=== PATIENT | female | born 1930 | race Caucasian/White ===

== ENCOUNTER 2019-03-05 14:27 | Inpatient (IN) | payer MEDICARE, OTHER ==
[~2019-03-05 14:27] MED LIST: BAYER CHEWABLE81 MG; BAYER CHEWABLE81 MG PO; COREG6.25 MG PO; COUMADIN3 MG PO; EFFIENT10 MG PO; FLUTICASONE PRO16 GM NS; HUMALOG 30100 UNITS/ SC; IMDUR30 MG PO; IMDUR60 MG PO; KADIAN50 MG TD; KLONOPIN0.5 MG PO; LASIX40 MG PO; LASIX80 MG PO; LEVEMIR100 U/M1 SQ; LORCET 10/650 T1 TAB PO; MESTINON60 MG PO; NEURONTIN 300300 MG PO; NITROSTAT0.3 MG SL; NOVOLOG MI100 UNIT/1 SQ; PLAVIX75 MG PO; PROCARDIA XL60 MG PO; PROTONIX40 MG PO
[2019-03-05 14:56] VITALS: BP 110/74
[2019-03-05] MEDS ORDERED: HYDROCODON-ACE1 EA10 (15:15)
[2019-03-05] MEDS ORDERED: NORVASC10 MG (15:15)
[2019-03-05] MEDS ORDERED: COUMADIN4 MG PO (15:16)
[2019-03-05 15:33] LABS: BASOPHILS 0.5 % (0-2); EOSINOPHILS 2.4 % (0-7); HEMATOCRIT 39.6 % (36.0-48.0); HEMOGLOBIN 12.7 g/dL (12-16); IMMATURE GRANULOCYTES 0.2 % (0-5); LYMPHOCYTES 34.6 % (15-50); MCH 28.3 pg (26.0-34.0); MCHC 32.1 g/dL (31.0-37.0); MCV 88.4 fL (80.0-100.0); MEAN PLATELET VOLUME 11.1 fL (7.4-10.4); MONOCYTES 10.4 % (2-11); NEUTROPHILS 51.9 % (40-80); RBC 4.48 10x6/uL (4.00-5.40); RDW 17.5 % (11.5-14.5); WBC 6.2 10x3/uL (4.8-10.8)
[2019-03-05 15:38] LABS: PLATELET COUNT 182 10x3/uL (130-400)
[2019-03-05 15:43] LABS: APTT 33.2 SECONDS (22.8-39.4); INR 1.77 (0.85-1.17)
[2019-03-05 15:53] LABS: ALBUMIN 3.5 g/dL (3.4-5.0); ALKALINE PHOSPHATASE 44 U/L (46-116); ALT (SGPT) 21 U/L (10-68); BILIRUBIN - TOTAL 0.21 mg/dL (0.2-1.3); CALC OSMOLALITY 282 mosm/kg (275-300); CALCIUM 8.5 mg/dL (8.5-10.1); CHLORIDE - SERUM 103 mmol/L (98-107); CREATININE - SERUM 1.7 mg/dL (0.6-1.3); GLUCOSE 101 mg/dL (74-106); POTASSIUM - SERUM 4.1 mmol/L (3.5-5.1); PROTEIN - SERUM 7.7 g/dL (6.4-8.2); SODIUM 140 mmol/L (136-145); UREA NITROGEN 23 mg/dL (7-18); eGFR NON AFRICAN AMERICAN 30 mL/min (90-120)
[2019-03-05 16:05] LABS: CKMB 0.4 U/L (0.0-3.6); CREATINE KINASE 54 UL (21-215); MAGNESIUM - SERUM 2.4 mg/dL (1.8-2.4); TROPONIN-I < 0.017 ng/mL (0.000-0.060)
--- NOTE | 2019-03-05 16:45 | NUR ---
PT ASSISTED WITH BSC.
[2019-03-05 17:39] LABS: CKMB 0.2 U/L (0.0-3.6); CREATINE KINASE 59 UL (21-215)
[2019-03-05 17:41] LABS: TROPONIN-I < 0.017 ng/mL (0.000-0.060)
[2019-03-05] MEDS ORDERED: NORVASC5 MG PO (18:03)
[2019-03-05] MEDS ORDERED: NEURONTIN800 MG PO (18:04)
[2019-03-05] MEDS ORDERED: NEURONTIN800 MG (18:04)
--- NOTE | 2019-03-05 19:18 | NUR ---
RECIEVED TO ROOM 2123 FORM ER VIA STRETCHER. PT A&O. RESPERATIONS EVEN ON O2 AT 2 LITERS VIA NC. IV TO RIGHT HAND WITH LEVAQUIN INFUSING. IV SITE CLEAN AND DRY. PLACED ON TELEMETRY, 93 SR. HISTORY AND MED REC OBTAINED AND CHARTED IN [facility]. SANDWHICH TRAY AND APPLE JUICE GIVEN. PT DENIES PAIN OR OTHER NEEDS AT THIS TIME, BED LOW, CL IN REACH.
[2019-03-05] MEDS ORDERED: HYDROCODON-ACE1 EA10 PO (19:20)
[2019-03-05 21:21] VITALS: BP 102/62
[2019-03-05 22:37] VITALS: BP 102/62; BMI 41.1
[2019-03-05 23:46] LABS: CKMB 0.6 U/L (0.0-3.6); CREATINE KINASE 72 UL (21-215); TROPONIN-I < 0.017 ng/mL (0.000-0.060)
[2019-03-06] VITALS (7 sets, daily range): BP systolic 108–162; BP diastolic 62–75; BMI 35.6
--- NOTE | 2019-03-06 02:39 | NUR ---
NORCO 1 TAB GIVEN FOR C/O PAIN TO LEFT LEG, RATES PAIN AT AN 8 ON PAIN SCALE.
[2019-03-06 04:42] LABS: BASOPHILS 0.3 % (0-2); EOSINOPHILS 1.7 % (0-7); HEMATOCRIT 37.3 % (36.0-48.0); HEMOGLOBIN 11.7 g/dL (12-16); IMMATURE GRANULOCYTES 0.2 % (0-5); LYMPHOCYTES 29.5 % (15-50); MCH 27.7 pg (26.0-34.0); MCHC 31.4 g/dL (31.0-37.0); MCV 88.4 fL (80.0-100.0); MEAN PLATELET VOLUME 11.1 fL (7.4-10.4); MONOCYTES 9.2 % (2-11); NEUTROPHILS 59.1 % (40-80); PLATELET COUNT 177 10x3/uL (130-400); RBC 4.22 10x6/uL (4.00-5.40); RDW 17.4 % (11.5-14.5); WBC 5.7 10x3/uL (4.8-10.8)
[2019-03-06 05:17] LABS: ALKALINE PHOSPHATASE 43 U/L (46-116); ALT (SGPT) 17 U/L (10-68); BILIRUBIN - TOTAL 0.37 mg/dL (0.2-1.3); CALCIUM 8.2 mg/dL (8.5-10.1); CARBON DIOXIDE 25.6 mmol/L (21.0-32.0); CHLORIDE - SERUM 102 mmol/L (98-107); CKMB 0.4 U/L (0.0-3.6); CREATINE KINASE 79 UL (21-215); CREATININE - SERUM 1.8 mg/dL (0.6-1.3); POTASSIUM - SERUM 4.6 mmol/L (3.5-5.1); PROTEIN - SERUM 7.1 g/dL (6.4-8.2); SODIUM 138 mmol/L (136-145); UREA NITROGEN 24 mg/dL (7-18); eGFR NON AFRICAN AMERICAN 28 mL/min (90-120)
[2019-03-06 05:19] LABS: CALC OSMOLALITY 284 mosm/kg (275-300); GLUCOSE 191 mg/dL (74-106); TROPONIN-I < 0.017 ng/mL (0.000-0.060)
--- NOTE | 2019-03-06 09:20 | NUR ---
ASSESSMENT DONE. DENIES NEEDS.
--- NOTE | 2019-03-06 09:54 | NUR ---
I have reviewed this patient and I concur with the Shift Assessment completed by the Licensed Practical Nurse today this shift.
--- NOTE | 2019-03-06 11:07 | NUR ---
[facility] IN [place] IS PT HOME HEALTH AGENCY
--- NOTE | 2019-03-06 13:47 | CN ---
PATIENT NAME:BRUNO KELLER MEDICAL RECORD: [id number] : [birth year] LOCATION:[place] D.2124 ADMIT DATE: 03/05/19 ACCOUNT: [id number] CONSULTING PHYSICIAN: KATY MCCRARY MD REFERRING PHYSICIAN: KARIN LIRIANO MD DATE OF CONSULTATION: 03/06/2019 HISTORY OF PRESENT ILLNESS: An 88-year-old female with ongoing history of chest pains, it has been going on and off for around the past month, definitely pleuritic component. She also reports some smothering at night, vague history, I had recommend pacemaker in the past, although only has unifocal PVCs, bigeminy here, some cough. No syncope. Cardiac enzymes are negative despite the fact creatinine is elevated. We are asked to see her concerning her cardiovascular status. PAST MEDICAL HISTORY: Includes; 1. History of coronary artery disease, status post intervention. 2. Hypertension. 3. Diabetes mellitus. MEDICATIONS: Includes Imdur 60 mg p.o. every day; insulin per scale; Lasix 40 every day; Neurontin 800 t.i.d.; aspirin 81 every day; amlodipine 5 every day. ALLERGIES: PLAVIX AND VIOXX. SOCIAL HISTORY: Nonsmoker, nondrinker. Does have difficulty with her ADLs. REVIEW OF SYSTEMS: The patient reports easy bruising but reports no swollen glands. The patient reports no fever, no night sweats, no significant weight gain, no significant weight loss. No significant exercise tolerance. The patient reports no dry eyes, no irritation, no vision change. Patient reports no difficulty hearing and no ear pain. Patient reports no frequent nose bleeds or nose and sinus problems. Patient reports on arm pain on exertion. No shortness of breath while lying down. No history of heart murmur. Patient reports no cough, no wheezing or coughing up blood. Patient reports no abdominal pain, no vomiting. Normal appetite. No diarrhea and not vomiting blood. No nausea and no constipation. Patient reports no incontinence. No difficulty urinating. No hematuria. No increased frequency. Patient reports no muscle aches. No weakness, no arthralgias, no back pain. No swelling of the extremities. Patient reports no abnormal mole, no jaundice, no rashes. Reports no loss of consciousness. No weakness and no numbness. No seizures, dizziness, or headaches. The patient reports no depression, no sleep disturbance, feeling safe in a relationship and no alcohol abuse. Patient reports on fatigue. Reports no runny nose or sinus pressure. No itching, no hives, and no frequent sneezing. PHYSICAL EXAMINATION. GENERAL: Elderly female in no acute distress, alert and oriented. VITAL SIGNS: Blood pressure 135/66, pulse 80 currently and regular. HEENT: Normocephalic, atraumatic. NECK: No bruits noted. HEART: Regular, a II/ systolic ejection murmur, occasional asystole. LUNGS: Fairly good air excursion. ABDOMEN: Soft, nontender. EXTREMITIES: Pulses 2+. No edema. CONSULT REPORT [id number] BRUNO KELLER DIAGNOSTIC DATA: ECG shows sinus rhythm with bigeminal PVCs. IMPRESSION: With negative cardiac enzymes in view of chronic chest pain, suspect maybe some pleuritic component. We will start on colchicine, give one dose of Toradol. Check echocardiographic study. Further recommendations based on the above. TRANSINT:[id number] Voice Confirmation ID: [id number] DOCUMENT ID: [id number] KATY MCCRARY MD at 1347 CC: [id number] DICTATION DATE: 03/06/19 0851 METAL ROASTER: 03/06/19 1015 ADM IN [place] [id number] [place] [id number]
--- NOTE | 2019-03-06 20:02 | NUR ---
HS MEDS GIVEN WITH FRESH ICE WATER. NORCO 1 TAB GIVEN FOR C/O PAIN TO LEFT LEG, RATES PAIN AT AN 8 ON PAIN SCALE. COFFEE GIVEN AT PT REQUEST, NO OTHER NEEDS EXPRESSED AT THIS TIME. BED LOW, CL IN REACH.
[2019-03-07 00:54] VITALS: BP 146/87
--- NOTE | 2019-03-07 03:13 | NUR ---
I have reviewed this patient and I concur with the Shift Assessment completed by the Licensed Practical Nurse today this shift.
--- NOTE | 2019-03-07 03:20 | NUR ---
RESTING WITH EYES CLOSED, RESPERATIONS EVEN, NO S/S DISTRESS NOTED.
[2019-03-07 05:23] VITALS: BP 175/92
[2019-03-07 06:59] LABS: BASOPHILS 0.2 % (0-2); EOSINOPHILS 1.8 % (0-7); HEMATOCRIT 37.8 % (36.0-48.0); HEMOGLOBIN 11.9 g/dL (12-16); IMMATURE GRANULOCYTES 0.4 % (0-5); LYMPHOCYTES 22.4 % (15-50); MCH 27.5 pg (26.0-34.0); MCHC 31.5 g/dL (31.0-37.0); MCV 87.5 fL (80.0-100.0); MEAN PLATELET VOLUME 10.7 fL (7.4-10.4); MONOCYTES 9.2 % (2-11); PLATELET COUNT 163 10x3/uL (130-400); RBC 4.32 10x6/uL (4.00-5.40); RDW 17.3 % (11.5-14.5)
[2019-03-07 07:21] LABS: ANION GAP 15.3 mmol/L (8-16); BILIRUBIN - TOTAL 0.28 mg/dL (0.2-1.3); CALCIUM 8.3 mg/dL (8.5-10.1); CREATININE - SERUM 2.2 mg/dL (0.6-1.3); POTASSIUM - SERUM 4.3 mmol/L (3.5-5.1)
--- NOTE | 2019-03-07 07:55 | NUR ---
ASSESSMENT DONE. DENIES NEEDS.
[2019-03-07 09:30] VITALS: BP 150/52
[2019-03-07 11:00] VITALS: BP 134/84
--- NOTE | 2019-03-07 14:16 | NUR ---
Nutrition follow-up: Diet: low sodium PO intake fair at this time. Wt: 220# Will continue to provide food choices and honor food preferences within diet restrictions. RDN following.
--- NOTE | 2019-03-07 14:19 | NUR ---
I have reviewed this patient and I concur with the Shift Assessment completed by the Licensed Practical Nurse today this shift.
[2019-03-07 16:00] VITALS: BP 113/55
--- NOTE | 2019-03-07 16:32 | NUR ---
WITHOUT CHANGES OR DISTRESS NOTED AT THIS TIME. DENIES NEEDS
--- NOTE | 2019-03-07 20:42 | NUR ---
INITIAL ROUNDS AND ASSESSMENT COMPLETED. PT HAS BEEN ON HER CALL LIGHT OFF AND ON SINCE CHANGE OF SHIFT. ASKING FOR PAPER/PENS/WHEN IS NORCO DUE/VERY ATTENTION SEEKING. BEDTIME MEDS AND NORCO HAVE BEEN GIVEN AT THIS TIME. INSTRUCTED ON PURPOSE OF COLCHINE, PATIENT SEEMS TO HAVE NO COMPRESSION WHY SHE IS TAKING IT AND TRIED TO GIVE IT BACK, BUT DOES NOT DENY A GOUT DIAGNOSIS. MONITOR, EDUCATE AND CPOC.
--- NOTE | 2019-03-07 20:46 | NUR ---
ALSO ON TELEMETRY SR/ST 90'S/113
--- NOTE | 2019-03-07 22:48 | NUR ---
FSBS WAS 214, SLIDING SCALE INSULIN ADMINISTERED. PT NOW VISITING WITH HER FAMILY IN HER ROOM.
--- NOTE | 2019-03-08 01:43 | NUR ---
RESTING IN BED WITH NO DISTRESS. CALL LIGHT IN REACH. MONITOR AND CPOC.
[2019-03-08 04:21] VITALS: BP 122/67
[2019-03-08 05:45] LABS: BASOPHILS 0.2 % (0-2); EOSINOPHILS 3.8 % (0-7); HEMATOCRIT 35.9 % (36.0-48.0); HEMOGLOBIN 11.3 g/dL (12-16); IMMATURE GRANULOCYTES 0.2 % (0-5); LYMPHOCYTES 36.9 % (15-50); MCH 27.8 pg (26.0-34.0); MCHC 31.5 g/dL (31.0-37.0); MCV 88.2 fL (80.0-100.0); MEAN PLATELET VOLUME 10.6 fL (7.4-10.4); MONOCYTES 12.8 % (2-11); NEUTROPHILS 46.1 % (40-80); PLATELET COUNT 169 10x3/uL (130-400); RBC 4.07 10x6/uL (4.00-5.40); RDW 17.8 % (11.5-14.5); WBC 4.5 10x3/uL (4.8-10.8)
[2019-03-08 06:03] LABS: ALBUMIN 2.8 g/dL (3.4-5.0); ANION GAP 11.4 mmol/L (8-16); BILIRUBIN - TOTAL 0.25 mg/dL (0.2-1.3); CALCIUM 8.3 mg/dL (8.5-10.1); CARBON DIOXIDE 25.7 mmol/L (21.0-32.0); CREATININE - SERUM 2.1 mg/dL (0.6-1.3); POTASSIUM - SERUM 4.1 mmol/L (3.5-5.1); PROTEIN - SERUM 6.5 g/dL (6.4-8.2)
--- NOTE | 2019-03-08 07:41 | NUR ---
PT RESTING COMFORTABLY IN BED, WITH EYES CLOSED. RESP EVEN AND NONLABORED ON RA. RT HAND IV SL. MONITOR SHOWING SR 77, CALL LIGHT IN REACH, BEDSIDE RAILS X2, NAD NOTED, WILL CONTINUE PLAN OF CARE.
[2019-03-08 08:44] VITALS: BP 125/72
--- NOTE | 2019-03-08 11:48 | NUR ---
BLOOD SUGAR OF 245, 4UNITS GIVEN PER S/S. PT UP TO SIDE OF BED, FIXING TO EAT LUNCH, DENIES ANY NEEDS AT THIS TIME. CALL LIGHT IN REACH, NAD NOTED, WILL CONTINUE TO MONITOR.
--- NOTE | 2019-03-08 11:54 | NUR ---
BLOOD SUGAR OF 245, 4UNITS OF INSULIN GIVEN AT THIS TIME. PT DENIES ANY NEEDS AT THIS TIME. CALL LIGHT IN REACH, NAD NOTED, WILL CONTINUE TO MONITOR.
[2019-03-08 12:08] VITALS: BP 128/69
--- NOTE | 2019-03-08 15:10 | NUR ---
GAVE NORCO FOR PAIN LEVEL OF 8/10. PT RESTING COMFORTABLY IN BED, DENIES ANY OTHER NEEDS AT THIS TIME. CALL LIGHT IN REACH, NAD NOTED, WILL CONTINUE TO MONITOR.
[2019-03-08 15:50] VITALS: BP 128/75
--- NOTE | 2019-03-08 16:09 | NUR ---
BLOOD SUGAR OF 189, 2UNITS OF INSULIN GIVEN PER S/S. PT RESTING COMFORTABLY IN BED, DENIES ANY NEEDS AT THIS TIME. CALL LIGHT IN REACH.
[2019-03-08 19:55] VITALS: BP 109/60
--- NOTE | 2019-03-08 20:00 | NUR ---
INITIAL ROUNDS AND ASSESSMENT COMPLETED. PT RESTING IN BED. PIV TO RIGTH HAND SALINE LOCKED. SR PER TELEMETRY. MONITOR AND CPOC.
--- NOTE | 2019-03-08 22:00 | NUR ---
BEDTIME MEDS GIVEN. NORCO GIVEN FOR PAIN/DISCOMFORT. PT RESTING. CALL LIGHT IN REACH. MONITOR AND CPOC.
[2019-03-08 23:55] VITALS: BP 109/58
--- NOTE | 2019-03-09 03:11 | NUR ---
PT RESTING WITH EYES CLOSED. RESPS EVEN/NONLABORED. CALL LIGHT IN REACH.
[2019-03-09 03:59] VITALS: BP 134/79
--- NOTE | 2019-03-09 04:28 | NUR ---
PT REFUSED TO ALLOW AM LABS TO BE DRAWN.
--- NOTE | 2019-03-09 04:39 | NUR ---
DISCUSSED NEED FOR AM LABS WITH PATIENT AND SHE SAID "I JUST DON'T WANT NOBODY PUNCHIN' ON ME." (REFERRING TO VENIPUNCTURE).
--- NOTE | 2019-03-09 07:35 | NUR ---
ASSESSMENT COMPLETED. ALERT AND ORIENTED. WANTING TO GO HOME. TELEMERTY SHOWS SR 75. O2 AT 2 L/M PER NC. SR UP WITH CALL LIGHT IN REACH. WILL MONITOR
[2019-03-09 08:09] VITALS: BP 121/66
[2019-03-09 11:12] VITALS: BP 125/56
--- NOTE | 2019-03-09 12:31 | NUR ---
I have reviewed this patient and I concur with the Shift Assessment completed by the Licensed Practical Nurse today this shift.
[2019-03-09 16:12] VITALS: BP 116/62
[2019-03-09 20:38] VITALS: BP 107/48
--- NOTE | 2019-03-09 21:09 | NUR ---
RECIEVED LAYING IN BED WITH EYES OPEN. ALERT AND ORIENTED. C/O WANTING TO GO HOME. EXPLAINED THAT SHE NEEDED TO LET LAB GET HER BLOOD SO THE DOCTOR CAN SEE HOW HER INFECTION IS DOING. C/O AC'S BEING BRUISED AND EXPLAINED THAT SHE COULD REFUSE TO LEFT THEM DRAW IN THOSE AREAS D/T PAINFUL AND SORE. VERBAL AGREEMENT GIVEN TO ALLOW BLOOD DRAW IN AM.
--- NOTE | 2019-03-09 23:12 | NUR ---
EARLIER THIS SHIT PT GOT SCOW CAPTAIN LIGHT AND TOLD AIDE TO TELL THIS NURSE SHE WANTED A PAIN PILL. EXPLAINED TO AIDE SHE HAD JUST HAD ONE AND IT WOULD BE 6 HRS BEFORE SHE COULS HAVE ANOTHER ONE. AIDE CAME BACK AND SAID PT SAID TELL HER TO GO TO [facility]. WENT IN AND SPOKE WITH PT AND EXPLAINED SHE HAD JUST HAD ONE AND IT WOULD BE 6 HRS FROM TYHAT TIME. PT SATED " I DON'T CARE I'M LEAVING FIRST THING IN THE MORNING". ATTEMPTED TO EXPLAIN THAT DR WOULD HAVE TO RELEASE HER AND WRITE AN ORDER. PT STATED " I DON'T CARE I'M LEAVING". EXPLAINED SHE COULD GO AMA IF SHE WOULD SIGN THE PAPER AND EXPLAINED THAT MEANT AGAINST MEDICAL ADVISE. PT WOULD NOT SAY ANYTHING AT THAT POINT.
[2019-03-09 23:44] VITALS: BP 144/7
[2019-03-10 04:57] VITALS: BP 136/87
[2019-03-10 05:42] LABS: BASOPHILS 0.5 % (0-2); EOSINOPHILS 4.3 % (0-7); HEMATOCRIT 37.2 % (36.0-48.0); HEMOGLOBIN 11.5 g/dL (12-16); IMMATURE GRANULOCYTES 0.2 % (0-5); LYMPHOCYTES 31.7 % (15-50); MCH 27.6 pg (26.0-34.0); MCHC 30.9 g/dL (31.0-37.0); MCV 89.4 fL (80.0-100.0); MEAN PLATELET VOLUME 10.8 fL (7.4-10.4); MONOCYTES 12.1 % (2-11); NEUTROPHILS 51.2 % (40-80); PLATELET COUNT 172 10x3/uL (130-400); RBC 4.16 10x6/uL (4.00-5.40); RDW 17.8 % (11.5-14.5); WBC 4.2 10x3/uL (4.8-10.8)
[2019-03-10 06:10] LABS: ALBUMIN 2.9 g/dL (3.4-5.0); ANION GAP 13.6 mmol/L (8-16); BILIRUBIN - TOTAL 0.33 mg/dL (0.2-1.3); CALCIUM 7.9 mg/dL (8.5-10.1); CARBON DIOXIDE 25.6 mmol/L (21.0-32.0); CREATININE - SERUM 2.1 mg/dL (0.6-1.3); POTASSIUM - SERUM 4.2 mmol/L (3.5-5.1); PROTEIN - SERUM 6.8 g/dL (6.4-8.2)
--- NOTE | 2019-03-10 07:38 | NUR ---
ROUNDING DONE WITH PATIENT LAYING ON BACK, ON 2L PER NC. ON HEART MONITOR SHOWING SR. NO IV ACCESS AT THIS TIME. WAS GIVEN NORCO AT 0614. ON EP, K+ IS 4.2.
--- NOTE | 2019-03-10 07:49 | NUR ---
TO RADIOLOGY VIA WHEELCHAIR AND PORTABLE OXYGEN.
--- NOTE | 2019-03-10 07:58 | NUR ---
RETURNS FROM RADIOLOGY.
[2019-03-10 08:02] LABS: INR 2.3 (0.85-1.17); PROTIME 24.6 SECONDS (11.6-15.0)
[2019-03-10 08:23] VITALS: BP 154/82
--- NOTE | 2019-03-10 11:50 | NUR ---
ASSITED TO CHAIR FOR LUNCH PAST BATHROOM USE. CALL LIGHT IN USE.
[2019-03-10 11:57] VITALS: BP 118/66
--- NOTE | 2019-03-10 12:40 | NUR ---
STILL IN CHAIR, DENIES NEEDS AT THIS ITME. WANTING TO GO HOME.
--- NOTE | 2019-03-10 13:02 | EC ---
PATIENT:BRUNO KELLER DATE OF SERVICE: 03/05/19 SEX: F MEDICAL RECORD: [id number] DATE OF : [birth year] LOCATION:D.M2 D.212 AGE OF PATIENT: 88 ADMISSION DATE: 03/05/19 REFERRING PHYSICIAN: INTERPRETING PHYSICIAN: KATY MCCRARY MD ECHOCARDIOGRAM REPORT ECHO CHARGES 4 ECHO COMPLETE Date: 03/06/19 CLINICAL DIAGNOSIS: CHEST PAIN, HX CAD/STENT/HTN ECHOCARDIOGRAPHIC MEASUREMENTS (adult normal given) AC root (d.<3.7cm) 3.5 cm LV Septum d (<1.2 cm> 1.2 cm Valve Excursion 1.5 cm LV Septum (systole) 1.6 cm Left Atria (s.<4.0cm> 4.4 cm LVPW d(<1.2cm) 1.6 cm RV (d.<2.3cm) 3.7 cm LVPW (sytole) 1.9 cm LV diastole(<5.6CM) 4.7 cm MV E-F(>70mm/sec) cm LV systole 3.6 cm LVOT Diameter 1.8 cm MV exc.(>10mm) 1.3 cm Est.ejection fraction (50-75%) % DOPPLER: LVIT cm/sec A 85.0 cm/sec E 88.0 cm/sec LA cm/sec RVSP 22 mmHg LVOT 102 cm/sec AOP1/2T m/s Asc. Ao 135 cm/sec RVOT 70 cm/sec RA cm/sec PA 106 cm/sec AV Gradient Peak 7.321mmHg AV Mean 3.68 mmHg AV Area 2.0 cm MV Gradient Peak 4.09 mmHg MV Mean 1.79 mmHg MV Area cm COMMENTS: Sprayer Machine: 2 FRANCIA WALLACE Beader: 3 Dr. Peralta TAPE# PACS Pericardial Effusion Y DATE OF SERVICE: Adequate 2D, color flow, spectral Doppler, and M-Mode. LVH is present. LV internal dimension is normal. Wall motion normal. EF of is greater than or equal to 55%. Aortic valve sclerosis without evidence of stenosis on Doppler interrogation. Left atrium is dilated at 4.4 cm. Mitral valve shows no prolapse. Trace MR. Right-sided chambers grossly normal. Trace TR. TRANSINT:[id number] Voice Confirmation ID: [id number] DOCUMENT ID: [id number] ECHOCARDIOGRAM REPORT [id number] BRUNO KELLER GREGORY A MD at 1302 CC: [id number] DICTATION DATE: 03/07/[address] FOREMAN: 03/07/19 1056 ADM IN [facility] [address] [place] [id number]
--- NOTE | 2019-03-10 13:40 | NUR ---
SHOWER AND LINEN CHANGE DONE.
--- NOTE | 2019-03-10 14:36 | NUR ---
PATIENT IS STILL WANTING TO BE DISCHARGED HOME TODAY. I ASKED THAT SHE TALK TO THE DOCTOR ABOUT THIS ON ROUNDING.
--- NOTE | 2019-03-10 15:07 | MORECARE ---
CASE MANAGEMENT DISCHARGE SUMMARY PATIENT: BRUNO KELLER UNIT: [id number] ADM DATE: 03/05/19 AGE: 88 : [birth year] SEX: F ROOM/BED: D.1384 AUTHOR: SANJIV MELVIN PHYSICIAN: REFERRING PHYSICIAN: KARIN LIRIANO MD DATE OF SERVICE: 03/10/19 Discharge Plan Patient Name: BRUNO KELLER Facility: [facility]:[place] : 1930 Planned Disposition: Home with Home Health Anticipated Discharge Date: 03/10/19 Discharge Date: Expected LOS: 5 Initial Reviewer: [email or web address] Initial Review Date: 03/10/2019 Generated: 03/10/19 4:07 pm DCPIA - Discharge Planning Initial Assessment Updated by [email or web address]: Philippe Billingsley on 03/10/19 3:06 pm * Is the patient Alert and Oriented? Yes * How many steps to enter\exit or inside your home? * PCP DR. SIMS [place] * Pharmacy [facility] IN [place] * Preadmission Environment Home Alone * ADLs Independent * Equipment Wheelchair * Other Equipment [employer] E[employer]IP[employer] PROVIDER PREFERENCE * List name and contact numbers for known caregivers / representatives who currently or will assist patient after discharge: EVERETTE KELLER, DIO, * Verbal permission to speak to the caregivers and representatives has been obtained from the patient. N/A * Community resources currently utilized Home Health Private Duty Care * Please name any agencies selected above. [facility] - NURSING PRIVATE PAY REPAIRER WELDING SYSTEMS AND EQUIPMENT - 6 HOURS DAILY SUNDAY THRU SUNDAY * Additional services required to return to the preadmission environment? No * Can the patient safely return to the preadmission environment? Yes * Has this patient been hospitalized within the prior 30 days at any hospital? Yes Patient Name: BRUNO KELLER Page [phone] at 1507 All edits/amendments must be made on the electronic document DICTATION DATE: 03/10/19 1507 CABLE INSTALLER: ADRIAN 03/10/19 1507 RPT#: [id number] DC DATE: STATUS: ADM IN [facility] [address] [place] [address] END OF REPORT
--- NOTE | 2019-03-10 15:15 | MORECARE ---
CASE MANAGEMENT DISCHARGE SUMMARY PATIENT: BRUNO KELLER UNIT: [id number] ADM DATE: 03/05/19 AGE: 88 : [birth year] SEX: F ROOM/BED: D.3512 AUTHOR: NGOZI,DOC PHYSICIAN: REFERRING PHYSICIAN: KARIN LIRIANO MD DATE OF SERVICE: 03/10/19 Discharge Plan Patient Name: BRUNO KELLER Facility: [facility]:[place] : 1930 Planned Disposition: Home with Home Health Anticipated Discharge Date: 03/10/19 Discharge Date: Expected LOS: 5 Initial Reviewer: [email or web address] Initial Review Date: 03/10/2019 Generated: 03/10/19 4:15 pm Comments DCP- Discharge Planning Updated by [email or web address]: Philippe Billingsley on 03/10/19 2:[address] Patient Name: BRUNO KELLER Admission Status: ER Accout number: [id number] Admission Date: 03-05-2019 : 1930 Admission Diagnosis: Attending: KARIN PAN Current LOS: 5 Anticipated DC Date: 03-10-2019 Planned Disposition: Home with Home Health Primary Insurance: MEDICARE A & B PLANNED EXTERNAL PROVIDER: [facility] Discharge Planning Comments: CM RECEIVED MESSAGE FROM [employer] [facility] OFFICE, PT IS ACTIVE ON HOSPITAL HOLD FOR HOME HEALTH [place] AT HOSPITAL DISCHARGE. CM MET WITH PT IN ROOM TO DISCUSS DISCHARGE PLANNING AND NEEDS. PT REPORTS LIVING AT HOME INDEPENDENTLY AND ALONE PT HAS WHEELCHAIR FROM UNKNOWN MEDICAL EQUIPMENT PROVIDER. PT HAS [employer] [facility] FOR NURSING AND A ORNAMENTAL METALWORK DESIGNER THAT PT PAYS PRIVATELY FOR CARE SUNDAY THRU SUNDAY, FROM 7AM TO 1PM DAILY. PT HAS NO OTHER OUTSIDE SERVICES ASSISTING IN THE HOME. CM DISCUSSED AVAILABILITY OF HOME HEALTH, REHAB SERVICES AND MEDICAL EQUIPMENT. PT DENIES DISCHARGE NEEDS, REPORTS HER SON WILL PICK HER UP FOR DISCHARGE HOME. IMPORTANT MESSAGE FROM MEDICARE PROVIDED AND EXPLAINED. CHOICE FOR [employer] [facility] SIGNED. CM FAXED HOSPITAL UPDATE TO [employer] AT [phone]. FOR DISCHARGE, NOTIFY [employer] [facility] OFFICE AT [phone], FAX DISCHARGE INFORMATION TO [employer] AT [phone]. Support Specialist: Philippe Billingsley DCPIA - Discharge Planning Initial Assessment Updated by [email or web address]: Philippe Billingsley on 03/10/19 3:06 pm * Is the patient Alert and Oriented? Yes * How many steps to enter\exit or inside your home? * PCP DR. SIMS [place] * Pharmacy [facility] IN [place] * Preadmission Environment Home Alone * ADLs Independent * Equipment Wheelchair * Other Equipment [employer] PROVIDER PREFERENCE * List name and contact numbers for known caregivers / representatives who currently or will assist patient after discharge: EVERETTE KELLER, DIO, * Verbal permission to speak to the caregivers and representatives has been obtained from the patient. N/A * Community resources currently utilized Home Health Private Duty Care * Please name any agencies selected above. [facility] - NURSING PRIVATE PAY HIRED WORKER - 6 HOURS DAILY SUNDAY THRU SUNDAY * Additional services required to return to the preadmission environment? No * Can the patient safely return to the preadmission environment? Yes * Has this patient been hospitalized within the prior 30 days at any hospital? Yes Last DP export: 03/10/19 2:07 pm Patient Name: BRUNO KELLER Page [phone] at 1515 All edits/amendments must be made on the electronic document DICTATION DATE: 03/10/191514 SENIOR SYSTEMS ADMINISTRATOR: ADRAIN 03/10/191514 RPT#: [id number] DC DATE: STATUS: ADM IN [facility] [address] [place] [address] END OF REPORT
--- NOTE | 2019-03-10 15:19 | NUR ---
ASSSITED TO RESTROOM AND BACK TO BED. WANTS TO SIT ON SIDE OF BED FOR AWHILE. CALL LIGHT IN USE.
--- NOTE | 2019-03-10 15:23 | MORECARE ---
CASE MANAGEMENT DISCHARGE SUMMARY PATIENT: BRUNO KELLER UNIT: [id number] ADM DATE: 03/05/19 AGE: 88 : [birth year] SEX: F ROOM/BED: D.5843 AUTHOR: NGOZI,DOC PHYSICIAN: REFERRING PHYSICIAN: KARIN LIRIANO MD DATE OF SERVICE: 03/10/19 Discharge Plan Patient Name: BRUNO KELLER Facility: [facility]:[place] : 1930 Planned Disposition: Home with Home Health Anticipated Discharge Date: 03/10/19 Discharge Date: Expected LOS: 5 Initial Reviewer: [email or web address] Initial Review Date: 03/10/2019 Generated: 03/10/19 4:23 pm Comments DCP- Discharge Planning Updated by [email or web address]: Philippe Billingsley on 03/10/19 2:[address] Patient Name: BRUNO KELLER Admission Status: ER Accout number: [id number] Admission Date: 03-05-2019 : 1930 Admission Diagnosis: Attending: KARIN PAN Current LOS: 5 Anticipated DC Date: 03-10-2019 Planned Disposition: Home with Home Health Primary Insurance: MEDICARE A & B PLANNED EXTERNAL PROVIDER: [facility] Discharge Planning Comments: CM RECEIVED MESSAGE FROM [employer] [facility] OFFICE, PT IS ACTIVE ON HOSPITAL HOLD FOR HOME HEALTH [place] AT HOSPITAL DISCHARGE. CM MET WITH PT IN ROOM TO DISCUSS DISCHARGE PLANNING AND NEEDS. PT REPORTS LIVING AT HOME INDEPENDENTLY AND ALONE PT HAS WHEELCHAIR FROM UNKNOWN MEDICAL EQUIPMENT PROVIDER. PT HAS [employer] [facility] FOR NURSING AND A VISUAL MERCHANDISING MANAGER THAT PT PAYS PRIVATELY FOR CARE SUNDAY THRU SUNDAY, FROM 7AM TO 1PM DAILY. PT HAS NO OTHER OUTSIDE SERVICES ASSISTING IN THE HOME. CM DISCUSSED AVAILABILITY OF HOME HEALTH, REHAB SERVICES AND MEDICAL EQUIPMENT. PT DENIES DISCHARGE NEEDS, REPORTS HER SON WILL PICK HER UP FOR DISCHARGE HOME. IMPORTANT MESSAGE FROM MEDICARE PROVIDED AND EXPLAINED. CHOICE FOR [employer] [facility] SIGNED. CM FAXED HOSPITAL UPDATE TO [employer] AT [phone]. FOR DISCHARGE, NOTIFY [employer] [facility] OFFICE AT [phone], FAX DISCHARGE INFORMATION TO [employer] AT [phone]. Director Of Coding: Philippe Billingsley DCPIA - Discharge Planning Initial Assessment Updated by [email or web address]: Philippe Billingsley on 03/10/19 3:06 pm * Is the patient Alert and Oriented? Yes * How many steps to enter\exit or inside your home? * PCP DR. SIMS [place] * Pharmacy [facility] IN [place] * Preadmission Environment Home Alone * ADLs Independent * Equipment Wheelchair * Other Equipment [employer] PROVIDER PREFERENCE * List name and contact numbers for known caregivers / representatives who currently or will assist patient after discharge: DIO JENSEN, * Verbal permission to speak to the caregivers and representatives has been obtained from the patient. N/A * Community resources currently utilized Home Health Private Duty Care * Please name any agencies selected above. [facility] - NURSING PRIVATE PAY PAPIER [employer] - 6 HOURS DAILY SUNDAY THRU SUNDAY * Additional services required to return to the preadmission environment? No * Can the patient safely return to the preadmission environment? Yes * Has this patient been hospitalized within the prior 30 days at any hospital? Yes External Providers External Provider: [facility] Next Contact Date: 03/11/2019 Service Request Date: Service Type: Resolution: Reviewer: Comments: Coverage Notice Reviewer: [email or web address] Radha Billingsley Notice Issued Date-Time: 03/10/2019 14:30 Notice Type: IM Discharge Notice Notice Delivered To: Patient Relationship to Patient: Entry Level Civil Engineer Name: Delivery Method: HAND - Hand Delivered Cherise Days: Prior Verbal Notification: Recipient Understood Notice: Yes Recipient Signature: Yes Med Rec Note Co-signed by Attending: Coverage Notice Comment: Reviewer: [email or web address] Radha Billingsley Notice Issued Date-Time: 03/10/2019 14:30 Notice Type: Patient Choice Letter Notice Delivered To: Patient Relationship to Patient: Entry Level Civil Engineer Name: Delivery Method: HAND - Hand Delivered Cherise Days: Prior Verbal Notification: Recipient Understood Notice: Yes Recipient Signature: Yes Med Rec Note Co-signed by Attending: Coverage Notice Comment: [facility] Last DP export: 03/10/19 2:15 pm Patient Name: BRUNO KELLER Page [phone] at 1523 All edits/amendments must be made on the electronic document DICTATION DATE: 03/10/191522 PREPRESS PROOFER: ADRIAN 03/10/191522 RPT#: [id number] DC DATE: STATUS: ADM IN [facility] [address] [place] [address] END OF REPORT
[2019-03-10 15:40] VITALS: BP 136/73
--- NOTE | 2019-03-10 17:29 | NUR ---
KHADAR STATES THAT SHE IS NOT HAVING MORE PAIN AT THIS TIME. WANTS TO KNOW IF SHE CAN GO HOME. I TOLD HER THAT THE DOCTOR JUST CAME ON TO THE FLOOR AND WOULD NEED TO SEE HER FIRST.
[2019-03-10 20:18] VITALS: BP 137/75
--- NOTE | 2019-03-10 22:29 | NUR ---
RECIEVED UP IN BED WITH EYES OPEN. ALERT AND ORIENTED X4. C/O WANTING TO GO HOME. TELEMETRY IN PLACE. WANTS TO KNOW WHEN SHE CAN HAVE ANOTHER PAIN PILL. DENIES ANY OTHER NEEDS
[2019-03-11 00:32] VITALS: BP 135/72
[2019-03-11 04:09] VITALS: BP 148/86
--- NOTE | 2019-03-11 07:20 | NUR ---
ROUNDING DONE WITH PATIENT RESTING WITH EYES CLOSED. RESP EVEN. WAS GIVEN NORCO EARILER IN SHIFT. NO IV ACCESS. ON HEART MONITOR SHOWING SR, HR 73. ON 2L PER NC.
[2019-03-11 08:00] VITALS: BP 127/75
[2019-03-11] MEDS ORDERED: LEVAQUIN750 MG PO (10:29)
[2019-03-11] MEDS ORDERED: AUGMENTIN 875-11 TAB PO (10:29)
[2019-03-11] MEDS ORDERED: ISOSORBIDE MONO60 M1 PO (10:30)
--- NOTE | 2019-03-11 12:01 | NUR ---
PATIENT IS DRESSED AND HEART MONITOR TURNED IN. AWAITING RIDE AND PAPERWORK.
--- NOTE | 2019-03-11 12:25 | NUR ---
PATIENT ASSISTED HERSELF INTO THE RESTROOM TO VOID AND THEN PULLS THE EMERGENCY LIGHT. WHEN I ASKED HER WHO HELPED HER TO RESTROOM, SHE REPLIED, "MYSELF". I ASKED HER WHY SHE PULLED THE EMERGENCY LIGHT AND SHE SAID THAT SHE DID NOT KNOW. WALKED HERSELF TO BED.
--- NOTE | 2019-03-11 12:40 | NUR ---
VERBAL AND WRITTEN DISCHARG INSTRUCTIONS GIVEN TO PATIENT. DISCHARGED HOME VIA WHEELCHAIR.
--- NOTE | 2019-03-11 13:12 | MORECARE ---
CASE MANAGEMENT DISCHARGE SUMMARY PATIENT: BRUNO KELLER UNIT: [id number] ADM DATE: 03/05/19 AGE: 88 : [birth year] SEX: F ROOM/BED: D.7279 AUTHOR: NGOZI,DOC PHYSICIAN: REFERRING PHYSICIAN: KARIN LIRIANO MD DATE OF SERVICE: 03/11/19 Discharge Plan Patient Name: BRUNO KELLER Facility: [facility]:[place] : 1930 Planned Disposition: Home with Home Health Anticipated Discharge Date: 03/11/19 Discharge Date: 03/11/2019 Expected LOS: 6 Initial Reviewer: [email or web address] Initial Review Date: 03/10/2019 Generated: 03/11/19 2:12 pm Comments DCP- Discharge Planning Updated by [id number]: Philippe Billingsley on 03/10/19 2:[address] Patient Name: BRUNO KELLER Admission Status: ER Accout number: [id number] Admission Date: 03-05-2019 : 1930 Admission Diagnosis: Attending: KARIN PAN Current LOS: 5 Anticipated DC Date: 03-10-2019 Planned Disposition: Home with Home Health Primary Insurance: MEDICARE A & B PLANNED EXTERNAL PROVIDER: [facility] Discharge Planning Comments: CM RECEIVED MESSAGE FROM [facility] OFFICE, PT IS ACTIVE ON HOSPITAL HOLD FOR HOME HEALTH [place] AT HOSPITAL DISCHARGE. CM MET WITH PT IN ROOM TO DISCUSS DISCHARGE PLANNING AND NEEDS. PT REPORTS LIVING AT HOME INDEPENDENTLY AND ALONE PT HAS WHEELCHAIR FROM UNKNOWN MEDICAL EQUIPMENT PROVIDER. PT HAS [facility] FOR NURSING AND A OUTPATIENT FACILITY PHYSICAL THERAPIST THAT PT PAYS PRIVATELY FOR CARE SUNDAY THRU SUNDAY, FROM 7AM TO 1PM DAILY. PT HAS NO OTHER OUTSIDE SERVICES ASSISTING IN THE HOME. CM DISCUSSED AVAILABILITY OF HOME HEALTH, REHAB SERVICES AND MEDICAL EQUIPMENT. PT DENIES DISCHARGE NEEDS, REPORTS HER SON WILL PICK HER UP FOR DISCHARGE HOME. IMPORTANT MESSAGE FROM MEDICARE PROVIDED AND EXPLAINED. CHOICE FOR [facility] SIGNED. CM FAXED HOSPITAL UPDATE TO [facility] AT [phone]. FOR DISCHARGE, NOTIFY [facility] OFFICE AT [phone], FAX DISCHARGE INFORMATION TO [facility] AT [phone]. Maintenance Worker House Trailer: Philippe Billingsley DCPIA - Discharge Planning Initial Assessment Updated by [email or web address]: Philippe Billingsley on 03/10/19 3:06 pm * Is the patient Alert and Oriented? Yes * How many steps to enter\exit or inside your home? * PCP DR. SIMS [place] * Pharm[facility] IN [place] * Preadmission Environment Home Alone * ADLs Independent * Equipment Wheelchair * Other Equipment [place] [facility]IP[facility] PROVIDER PREFERENCE * List name and contact numbers for known caregivers / representatives who currently or will assist patient after discharge: EVERETTE KELLER, DIO, * Verbal permission to speak to the caregivers and representatives has been obtained from the patient. N/A * Community resources currently utilized Home Health Private Duty Care * Please name any agencies selected above. [facility] - NURSING PRIVATE PAY WELDING MANAGER - 6 HOURS DAILY SUNDAY THRU SUNDAY * Additional services required to return to the preadmission environment? No * Can the patient safely return to the preadmission environment? Yes * Has this patient been hospitalized within the prior 30 days at any hospital? Yes Coverage Notice Reviewer: [id number] Radha Billingsley Notice Issued Date-Time: 03/10/2019 14:30 Notice Type: IM Discharge Notice Notice Delivered To: Patient Relationship to Patient: Air Brake Mechanic Name: Delivery Method: HAND - Hand Delivered Cherise Days: Prior Verbal Notification: Recipient Understood Notice: Yes Recipient Signature: Yes Med Rec Note Co-signed by Attending: Coverage Notice Comment: Reviewer: [id number] Radha Billingsley Notice Issued Date-Time: 03/10/2019 14:30 Notice Type: Patient Choice Letter Notice Delivered To: Patient Relationship to Patient: Air Brake Mechanic Name: Delivery Method: HAND - Hand Delivered Cherise Days: Prior Verbal Notification: Recipient Understood Notice: Yes Recipient Signature: Yes Med Rec Note Co-signed by Attending: Coverage Notice Comment: [facility] Last DP export: 03/10/19 2:23 pm Patient Name: BRUNO KELLER Page [phone] at 1312 All edits/amendments must be made on the electronic document DICTATION DATE: 03/11/19 1311 NATURAL GAS PLANT TECHNICIAN: ADRIAN 03/11/19 1311 RPT#: [id number] DC DATE:03/11/19 STATUS: DIS IN [facility] [address] [place] [address] END OF REPORT
--- NOTE | 2019-03-11 13:20 | MORECARE ---
CASE MANAGEMENT DISCHARGE SUMMARY PATIENT: BRUNO KELLER UNIT: [id number] ADM DATE: 03/05/19 AGE: 88 : [birth year] SEX: F ROOM/BED: D.3454 AUTHOR: NGOZIDOC PHYSICIAN: REFERRING PHYSICIAN: KARIN LIRIANO MD DATE OF SERVICE: 03/11/19 Discharge Plan Patient Name: BRUNO KELLER Facility: [facility]:[place] : 1930 Planned Disposition: Home with Home Health Anticipated Discharge Date: 03/11/19 Discharge Date: 03/11/2019 Expected LOS: 6 Initial Reviewer: [email or web address] Initial Review Date: 03/10/2019 Generated: 03/11/19 2:20 pm Comments DCP- Discharge Planning Updated by [id number]: Philippe Billingsley on 03/11/19 12:[address] Patient Name: BRUNO KELLER Encounter No: [id number] : 1930 Primary Insurance: MEDICARE A & B Anticipated DC Date: 03-11-2019 Planned Disposition: Home with Home Health External Planned Provider: [facility] OFFICE DCP follow-up note: PT DISCHARGED HOME. CM NOTIFIED [facility] OFFICE AT [phone], FAXED DISCHARGE INFORMATION TO [facility] AT [phone]. NO FURTHER NEEDS NOTED. Floor Grinder: Philippe Billingsley DCP- Discharge Planning Updated by [email or web address]: Philippe Billingsley on 03/10/19 2:[address] Patient Name: BRUNO KELLER Admission Status: ER Accout number: [id number] Admission Date: 03-05-2019 : 1930 Admission Diagnosis: Attending: KARIN PAN Current LOS: 5 Anticipated DC Date: 03-10-2019 Planned Disposition: Home with Home Health Primary Insurance: MEDICARE A & B PLANNED EXTERNAL PROVIDER: [facility] Discharge Planning Comments: CM RECEIVED MESSAGE FROM [facility] OFFICE, PT IS ACTIVE ON HOSPITAL HOLD FOR HOME HEALTH [place] AT HOSPITAL DISCHARGE. CM MET WITH PT IN ROOM TO DISCUSS DISCHARGE PLANNING AND NEEDS. PT REPORTS LIVING AT HOME INDEPENDENTLY AND ALONE PT HAS WHEELCHAIR FROM UNKNOWN MEDICAL EQUIPMENT PROVIDER. PT HAS [facility] FOR NURSING AND A CRYSTAL REPORT DEVELOPER THAT PT PAYS PRIVATELY FOR CARE SUNDAY THRU SUNDAY, FROM 7AM TO 1PM DAILY. PT HAS NO OTHER OUTSIDE SERVICES ASSISTING IN THE HOME. CM DISCUSSED AVAILABILITY OF HOME HEALTH, REHAB SERVICES AND MEDICAL EQUIPMENT. PT DENIES DISCHARGE NEEDS, REPORTS HER SON WILL PICK HER UP FOR DISCHARGE HOME. IMPORTANT MESSAGE FROM MEDICARE PROVIDED AND EXPLAINED. CHOICE FOR [facility] SIGNED. CM FAXED HOSPITAL UPDATE TO [facility] AT [phone]. FOR DISCHARGE, NOTIFY [facility] [place] OFFICE AT [phone], FAX DISCHARGE INFORMATION TO [facility] AT [phone]. Floor Grinder: Philippe Billingsley DCPIA - Discharge Planning Initial Assessment Updated by [id number]: Philippe Billingsley on 03/10/19 3:06 pm * Is the patient Alert and Oriented? Yes * How many steps to enter\exit or inside your home? * PCP DR. SIMS [place] * Pharmacy [facility] IN [place] * Preadmission Environment Home Alone * ADLs Independent * Equipment Wheelchair * Other Equipment [facility]QUIP[facility] PROVIDER PREFERENCE * List name and contact numbers for known caregivers / representatives who currently or will assist patient after discharge: EVERETTE KELLER, SON, * Verbal permission to speak to the caregivers and representatives has been obtained from the patient. N/A * Community resources currently utilized Home Health Private Duty Care * Please name any agencies selected above. [facility] - NURSING PRIVATE PAY CLEANER WALL - 6 HOURS DAILY SUNDAY THRU SUNDAY * Additional services required to return to the preadmission environment? No * Can the patient safely return to the preadmission environment? Yes * Has this patient been hospitalized within the prior 30 days at any hospital? Yes Coverage Notice Reviewer: [email or web address] Radha Billingsley Notice Issued Date-Time: 03/10/2019 14:30 Notice Type: IM Discharge Notice Notice Delivered To: Patient Relationship to Patient: Child Care Worker Name: Delivery Method: HAND - Hand Delivered Cherise Days: Prior Verbal Notification: Recipient Understood Notice: Yes Recipient Signature: Yes Med Rec Note Co-signed by Attending: Coverage Notice Comment: Reviewer: [id number] Billingsley Notice Issued Date-Time: 03/10/2019 14:30 Notice Type: Patient Choice Letter Notice Delivered To: Patient Relationship to Patient: Child Care Worker Name: Delivery Method: HAND - Hand Delivered Cherise Days: Prior Verbal Notification: Recipient Understood Notice: Yes Recipient Signature: Yes Med Rec Note Co-signed by Attending: Coverage Notice Comment: [facility] Last DP export: 03/11/19 12:12 pm Patient Name: BRUNO KELLER Page [phone] at 1320 All edits/amendments must be made on the electronic document DICTATION DATE: 03/11/19 1320 CAN SEALER: ADRIAN 03/11/19 1320 RPT#: [id number] DC DATE:03/11/19 STATUS: DIS IN [facility] [address] [place] [address] END OF REPORT
--- NOTE | 2019-03-13 14:21 | CN ---
PATIENT NAME:BRUNO PARIS MEDICAL RECORD: [id number] : [birth year] LOCATION:D.M2 D.2124 ADMIT DATE: 03/05/19 ACCOUNT: [id number] CONSULTING PHYSICIAN: PROSPER AGUILERA MD REFERRING PHYSICIAN: DUGLAS VALERIO MD DATE OF CONSULTATION: 03/09/2019 CONSULT REQUESTING PHYSICIAN: Duglas Valerio MD REASON FOR CONSULTATION: Bilateral pneumonia. HISTORY OF PRESENT ILLNESS: Ms. Paris is an 88-year-old female who came into the hospital with the chest pain for the last 3-4 days. In the ER evaluation, it was found that she had pneumonia, right lower lobe. Now, she is still coughing. There are no fever and chills, no night sweats. The chest x-ray was getting worse. REVIEW OF SYSTEMS: As in the history of present illness. PAST MEDICAL HISTORY: 1. Myasthenia gravis. 2. Arthritis. 3. She has a history of ovarian cancer. 4. Hypertension. 5. Coronary artery disease, status post stent placement. 6. Anxiety. PAST SURGICAL HISTORY: 1. Cholecystectomy. 2. Cataract surgery. 3. Hysterectomy. 4. Left knee replacement. ALLERGIES: SHE IS ALLERGIC TO PLAVIX AND VIOXX. MEDICATIONS: On [employer] is reviewed. PERSONAL AND SOCIAL HISTORY: The patient never smoked. She is a nondrinker. FAMILY HISTORY: Noncontributory. PHYSICAL EXAMINATION: GENERAL: Now, the patient is lying comfortably in bed. She is not in acute distress. VITAL SIGNS: The blood pressure is 125/56, pulse is 81, respiration is 18, temperature 97.7, SpO2 is 97% on 2 liters nasal cannula. HEENT: Conjunctivae are pink. Sclerae are not icteric. NECK: Supple, no JVD. CHEST: There are bibasilar crackles. No wheezing. HEART: Rhythm regular, normal sound, no murmur. ABDOMEN: Soft, bowel sounds present. No hepatosplenomegaly. RECTAL: Deferred. EXTREMITIES: No cyanosis, no clubbing, no pedal edema. CENTRAL NERVOUS SYSTEM: The patient is awake and alert. There is no obvious cranial nerve abnormality. The gait was not tested. CONSULT REPORT [id number] BRUNO PARIS CHEST RADIOGRAPH: There are bibasilar infiltrates. OTHER LABORATORY DATA: CBC: The WBC is 4.5, hemoglobin 11.3, hematocrit 35.9, the platelet count 169. Chemistry: Sodium is 139, potassium is 4.1, creatinine is 2.1. IMPRESSION: 1. Acute hypoxic respiratory failure. 2. Bibasilar pneumonia. 3. Chest pain. 4. Myasthenia gravis. 5. Chronic kidney disease. 6. Hypertension. RECOMMENDATIONS: 1. The patient is refusing IV. We will start her p.o. Levaquin and Augmentin. 2. Follow up labs and chest radiograph. 3. Supplemental oxygen. 4. Speech pathology consult to rule out any chronic aspiration. Dr. Valerio, thank you for involving me in the care of Ms. Paris. TRANSINT:[id number] Voice Confirmation ID: [id number] DOCUMENT ID: [id number] PROSPER AGUILERA MD at 1421 CC: [id number] DICTATION DATE: 03/09/19 1604 SKILL TRAINING PROGRAM COORDINATOR: 03/10/19 0001 DIS IN 03/11/19 [id number] [place] [address]
== END 2019-03-11 12:41 | disposition home health service (06) | DRG 193 ==
LOC: D.ER 14:27 → D.EDHOLD 17:17 → D.M2 17:17
PROVIDERS: Emergency Medicine; ADMIT Family Medicine Adult Medicine; ATTEND Family Medicine Adult Medicine
DX: J18.1 Lobar pneumonia, unspecified organism (principal); J96.01 Acute respiratory failure with hypoxia; N17.9 Acute kidney failure, unspecified; I25.119 Atherosclerotic heart disease of native coronary artery with unspecified angina pectoris; R94.31 Abnormal electrocardiogram [ECG] [EKG]; G70.00 Myasthenia gravis without (acute) exacerbation; E11.65 Type 2 diabetes mellitus with hyperglycemia; M19.90 Unspecified osteoarthritis, unspecified site; F41.9 Anxiety disorder, unspecified; R00.8 Other abnormalities of heart beat; E11.22 Type 2 diabetes mellitus with diabetic chronic kidney disease; I12.9 Hypertensive chronic kidney disease with stage 1 through stage 4 chronic kidney disease, or unspecified chronic kidney disease; N18.9 Chronic kidney disease, unspecified; Z79.4 Long term (current) use of insulin; I08.1 Rheumatic disorders of both mitral and tricuspid valves

== ENCOUNTER 2019-03-17 18:29 | Emergency (ER) | payer MEDICARE, OTHER ==
[~2019-03-17] VITALS: Ht 167.6 cm; Wt 93.2 kg
[~2019-03-17 18:29] MED LIST changes: +AUGMENTIN 875-11 TAB PO; +COUMADIN4 MG PO; +HYDROCODON-ACE1 EA10; +HYDROCODON-ACE1 EA10 PO; +ISOSORBIDE MONO60 M1 PO; +LEVAQUIN750 MG PO; +NEURONTIN800 MG; +NEURONTIN800 MG PO; +NORVASC10 MG; +NORVASC5 MG PO
[2019-03-17 18:42] VITALS: Ht 167.6 cm; Wt 93.2 kg
[2019-03-17 19:30] LABS: BASOPHILS 0.1 % (0-2); EOSINOPHILS 1.9 % (0-7); HEMATOCRIT 34.6 % (36.0-48.0); IMMATURE GRANULOCYTES 1.4 % (0-5); LYMPHOCYTES 21.3 % (15-50); MCH 27.8 pg (26.0-34.0); MCHC 31.8 g/dL (31.0-37.0); MCV 87.6 fL (80.0-100.0); MEAN PLATELET VOLUME 10.5 fL (7.4-10.4); MONOCYTES 8.5 % (2-11); NEUTROPHILS 66.8 % (40-80); PLATELET COUNT 192 10x3/uL (130-400); RBC 3.95 10x6/uL (4.00-5.40); RDW 18.1 % (11.5-14.5)
[2019-03-17 20:00] LABS: ALBUMIN 3.1 g/dL (3.4-5.0); ALKALINE PHOSPHATASE 52 U/L (46-116); ALT (SGPT) 22 U/L (10-68); BILIRUBIN - TOTAL 0.35 mg/dL (0.2-1.3); CALC OSMOLALITY 290 mosm/kg (275-300); CALCIUM 8.1 mg/dL (8.5-10.1); CARBON DIOXIDE 24.6 mmol/L (21.0-32.0); CHLORIDE - SERUM 100 mmol/L (98-107); CREATININE - SERUM 2.2 mg/dL (0.6-1.3); POTASSIUM - SERUM 3.8 mmol/L (3.5-5.1); PROTEIN - SERUM 7.3 g/dL (6.4-8.2); SODIUM 137 mmol/L (136-145); UREA NITROGEN 28 mg/dL (7-18); eGFR NON AFRICAN AMERICAN 22 mL/min (90-120)
[2019-03-17 20:05] LABS: APTT 37.6 SECONDS (22.8-39.4); INR 2.19 (0.85-1.17); PROTIME 23.6 SECONDS (11.6-15.0)
[2019-03-17 20:08] LABS: GLUCOSE 297 mg/dL (74-106)
[2019-03-17 20:11] LABS: CKMB 0.3 U/L (0.0-3.6); CREATINE KINASE 182 UL (21-215); PRO BNP 277 pg/mL (0-450)
[2019-03-17 20:14] LABS: TROPONIN-I < 0.017 ng/mL (0.000-0.060)
[2019-03-17 21:26] VITALS: BP 126/74
== END 2019-03-17 21:25 | disposition home or self-care (01) ==
LOC: D.ER 18:29
PROVIDERS: Emergency Medicine
DX: R06.00 Dyspnea, unspecified (principal); R93.89 Abnormal findings on diagnostic imaging of other specified body structures; Z86.718 Personal history of other venous thrombosis and embolism; Z79.01 Long term (current) use of anticoagulants; N28.9 Disorder of kidney and ureter, unspecified

== ENCOUNTER 2020-04-17 15:11 | Inpatient (IN) | payer MEDICARE, OTHER ==
[~2020-04-17] VITALS: Ht 167.6 cm; Wt 83.9 kg
--- NOTE | ~2020-04-17 | EC ---
PATIENT:BRUNO KELLER DATE OF SERVICE: 04/17/20 SEX: F MEDICAL RECORD: [id number] DATE OF : [birth year] LOCATION:D.MS [place] AGE OF PATIENT: 89 ADMISSION DATE: 04/17/20 REFERRING PHYSICIAN: INTERPRETING PHYSICIAN: KATY MCCRARY MD ECHOCARDIOGRAM REPORT ECHO CHARGES 4 ECHO COMPLETE Date: 04/21/20 CLINICAL DIAGNOSIS: LEFT FISICULAR BLOCK, HTN, DYSPNEA ECHOCARDIOGRAPHIC MEASUREMENTS (adult normal given) AC root (d.<3.7cm) 3.2 cm LV Septum d (<1.2 cm> 0.9 cm Valve Excursion 1.7 cm LV Septum (systole) 1.7 cm Left Atria (s.<4.0cm> 3.2 cm LVPW d(<1.2cm) 1.3 cm RV (d.<2.3cm) 2.2 cm LVPW (sytole) 1.4 cm LV diastole(<5.6CM) 4.5 cm MV E-F(>70mm/sec) cm LV systole 3.9 cm LVOT Diameter 1.6 cm MV exc.(>10mm) cm Est.ejection fraction (50-75%) % DOPPLER: LVIT cm/sec A 95 cm/sec E 56 cm/sec LA cm/sec RVSP 15.7 mmHg LVOT 117 cm/sec AOP1/2T m/s Asc. Ao 146 cm/sec RVOT 71 cm/sec RA cm/sec PA 72 cm/sec AV Gradient Peak 8.5 mmHg AV Mean 4.6 mmHg AV Area 1.8 cm MV Gradient Peak 4.0 mmHg MV Mean 2.1 mmHg MV Area cm COMMENTS: Compounder: Little MATHUR Keeler Polygraph Operator: 3 Dr. Peralta TAPE# PACS Pericardial Effusion N DATE OF SERVICE: Adequate 2D, color flow imaging, spectral Doppler, and M-Mode. No LVH. LV internal dimension is normal. Wall motion is normal. EF is greater than or equal to 55%. Aortic valve is tricuspid. No evidence of stenosis by Doppler interrogation. Left atrium is normal. Mitral valve shows no prolapse. Trivial MR. Right-sided chambers are grossly normal. Trivial TR. TRANSINT:[id number] Voice Confirmation ID: [id number] DOCUMENT ID: [id number] ECHOCARDIOGRAM REPORT [id number] BRUNO KELLER GREGORY A MD CC: [id number] DICTATION DATE: 04/22/20816 TYPING BOOKKEEPER: 04/22/20834 ADM IN [facility] [address] [facility]
[2020-04-17 15:34] LABS: BASOPHILS 0.1 % (0-2); EOSINOPHILS 0.2 % (0-7); HEMATOCRIT 43.5 % (36.0-48.0); HEMOGLOBIN 13.5 g/dL (12-16); IMMATURE GRANULOCYTES 0.6 % (0-5); LYMPHOCYTES 16.5 % (15-50); MCH 29.2 pg (26.0-34.0); MONOCYTES 8.4 % (2-11); NEUTROPHILS 74.2 % (40-80); PLATELET COUNT 179 10x3/uL (130-400); RBC 4.63 10x6/uL (4.00-5.40); RDW 16.3 % (11.5-14.5); WBC 8.9 10x3/uL (4.8-10.8)
[2020-04-17 15:56] LABS: ANION GAP 10.7 mmol/L (8-16); CALCIUM 8.8 mg/dL (8.5-10.1); CARBON DIOXIDE 30.3 mmol/L (21.0-32.0); CREATININE - SERUM 2.2 mg/dL (0.6-1.3)
[2020-04-17 16:02] LABS: ALBUMIN 3.5 g/dL (3.4-5.0); BILIRUBIN - TOTAL 0.38 mg/dL (0.2-1.3); PROTEIN - SERUM 7.7 g/dL (6.4-8.2)
--- NOTE | 2020-04-17 16:30 | NUR ---
PT'S DAUGHTER IN THE ROOM, MORE HISTORY WAS COLLECTED FROM HER. PT'S DAUGHTER STATES THAT THE PATIENT LIVES ALONE AND FELL SOMETIME IN THE NIGHT AND WAS UNABLE TO CALL FOR HELP, FAMILY STATES THAT SHE FOUND HER TODAY AND CALLED EMS.
[2020-04-17 16:31] VITALS: BP 131/70
--- NOTE | 2020-04-17 16:40 | NUR ---
IN AND OUT CATH WAS PREFORMED AND 10 OF CLEAR YELLOW URINE WAS COLLECTED AND SENT TO LAB
[2020-04-17 16:53] LABS: BILIRUBIN NEGATIVE (NEGATIVE); GLUCOSE NEGATIVE (NEGATIVE); KETONE NEGATIVE (NEGATIVE); NITRITE NEGATIVE (NEGATIVE); UROBILINOGEN NORMAL (NORMAL)
[2020-04-17 17:00] LABS: BACTERIA MANY /hpf (NEGATIVE); EPITHELIAL CELLS 0-5 /hpf (0-5); RED CELLS - URINE 0-5 /hpf (0-5); WHITE CELLS - URINE 25-50 /hpf (NEGATIVE)
[2020-04-17] MEDS ORDERED: ATIVAN0.5 MG PO (17:09)
[2020-04-17] MEDS ORDERED: LASIX80 MG PO (17:09)
[2020-04-17] MEDS ORDERED: ISOSORBIDE MONO30 M1 PO (17:10)
[2020-04-17] MEDS ORDERED: POTASSIUM CHLO10 ME1 PO (17:10)
[2020-04-17] MEDS ORDERED: TRAZODONE HCL150 MG PO (17:10)
[2020-04-17] MEDS ORDERED: MEDROL DOSE PACK4 MG PO (17:11)
[2020-04-17] MEDS ORDERED: DIFLUCAN100 MG PO (17:11)
[2020-04-17 18:09] VITALS: BP 82/49; BMI 29.9
--- NOTE | 2020-04-17 18:48 | NUR ---
ALERT AND ORIENTED WITH CONFUSION TO PLACE ONLY. GENERALIZED BRUISING NOTED TO BILATERAL ARMS WITH NO PERIPHERAL EDEMA NOTED. COMPLAINS OF GENERALIZED PAIN. FALL PRECAUTIONS IN PLACE.
[2020-04-17 20:00] VITALS: BP 141/75
[2020-04-18] VITALS: BP 126/64
[2020-04-18 04:00] VITALS: BP 135/78
[2020-04-18] MEDS ORDERED: DURAGESIC1 EAC5 TOPICAL (07:01)
[2020-04-18 07:02] LABS: BASOPHILS 0.1 % (0-2); EOSINOPHILS 1.7 % (0-7); HEMATOCRIT 39.5 % (36.0-48.0); HEMOGLOBIN 12.2 g/dL (12-16); IMMATURE GRANULOCYTES 0.4 % (0-5); LYMPHOCYTES 29.5 % (15-50); MCHC 30.9 g/dL (31.0-37.0); MEAN PLATELET VOLUME 10.9 fL (7.4-10.4); NEUTROPHILS 58.3 % (40-80); PLATELET COUNT 163 10x3/uL (130-400); RDW 16.4 % (11.5-14.5); WBC 7.5 10x3/uL (4.8-10.8)
[2020-04-18 07:03] LABS: ALBUMIN 2.8 g/dL (3.4-5.0); ANION GAP 11.8 mmol/L (8-16); BILIRUBIN - TOTAL 0.35 mg/dL (0.2-1.3); CALCIUM 8.3 mg/dL (8.5-10.1); CARBON DIOXIDE 26.8 mmol/L (21.0-32.0); MAGNESIUM - SERUM 2.4 mg/dL (1.8-2.4); POTASSIUM - SERUM 3.6 mmol/L (3.5-5.1); PROTEIN - SERUM 6.6 g/dL (6.4-8.2)
[2020-04-18 07:04] LABS: CREATININE - SERUM 1.6 mg/dL (0.6-1.3)
[2020-04-18 08:22] VITALS: BP 147/90
--- NOTE | 2020-04-18 09:00 | NUR ---
ALERT AND ORIENTED X3. IV INFILTRATED TO RT. A/C AND DISCONTINUED. LUNGS CTA AND HRRR WITH TELEMETRY INTACT. ABLE TO VOICE NEEDS AND CONCERNS AND ENCURAGED TO USE CALL LIGHT FOR ASSIT. GOOD ROM OF EXTREMITIES AND AMBULATED WITH THERAPY TO BATHROOM. FENTANYL PATCH NOTED TO LEFT CHEST. FALL PRECAUTIONS IN PLACE WELL SCDS
--- NOTE | 2020-04-18 09:36 | NUR ---
rehab prescreen: thank you for this eval, this pt has medicare insurance with a secondary insurance. she has yet to be evaluated by pt/ot to deturmine her need for IRF. will see how she progresses today and discuss her at our meeting in the morning. once again thank you for this eval. shaggy bush lpn clinical liasion
[2020-04-18 12:14] VITALS: BP 102/66
--- NOTE | 2020-04-18 13:33 | NUR ---
IV RESTARTED TO LEFT FOREARM AND TOLERATED WELL WITH 22G X 1 STICK.
[2020-04-18 16:12] VITALS: BP 115/67
[2020-04-18 20:29] VITALS: BP 135/67
[2020-04-19 00:16] VITALS: BP 158/89
[2020-04-19 06:17] VITALS: BP 179/84
--- NOTE | 2020-04-19 07:15 | NUR ---
SHIFT REPORT RECIEVED. CL IN REACH. BED ALARM ON. NO NEEDS AT THIS TIME. PATIENT AWAKE AND ALER.Ramakrishna JERNIGAN
--- NOTE | 2020-04-19 07:16 | NUR ---
I have reviewed this patient and I concur with the Shift Assessment completed by the Licensed Practical Nurse today this shift.
[2020-04-19 08:19] LABS: BASOPHILS 0.2 % (0-2); EOSINOPHILS 2.7 % (0-7); HEMATOCRIT 38.7 % (36.0-48.0); IMMATURE GRANULOCYTES 0.3 % (0-5); LYMPHOCYTES 25.6 % (15-50); MCH 28.8 pg (26.0-34.0); MCV 92.8 fL (80.0-100.0); MEAN PLATELET VOLUME 10.6 fL (7.4-10.4); NEUTROPHILS 62.2 % (40-80); PLATELET COUNT 186 10x3/uL (130-400); RBC 4.17 10x6/uL (4.00-5.40); RDW 16.2 % (11.5-14.5); WBC 5.9 10x3/uL (4.8-10.8)
[2020-04-19 08:23] LABS: ALBUMIN 2.8 g/dL (3.4-5.0); ANION GAP 9.9 mmol/L (8-16); BILIRUBIN - TOTAL 0.41 mg/dL (0.2-1.3); CALCIUM 7.9 mg/dL (8.5-10.1); CARBON DIOXIDE 27.7 mmol/L (21.0-32.0); CREATININE - SERUM 1.6 mg/dL (0.6-1.3); POTASSIUM - SERUM 3.6 mmol/L (3.5-5.1); PROTEIN - SERUM 6.5 g/dL (6.4-8.2)
[2020-04-19 09:10] VITALS: BP 163/90
--- NOTE | 2020-04-19 10:40 | NUR ---
SPOKE WITH PATIENT GRANDDAUGHTER ABOUT HOW PATIENT IS DOING TODAY. HAS PASSCODE. QUESTIONS ANSWERED. TRANSFERRED CALL INTO PATIENTS ROOM.
--- NOTE | 2020-04-19 11:41 | NUR ---
Reviewed patient's chart for the ARU. According to the notes she lives alone and she and her family are want NH placement. Will discuss in the IDT meeting today. Giovanna Marcelino RN Clinical Liaison, Rehab
[2020-04-19 12:58] VITALS: BP 140/75
[2020-04-19 14:26] VITALS: Ht 167.6 cm; Wt 83.9 kg
--- NOTE | 2020-04-19 15:22 | NUR ---
PATIENT IV THERAPY STATED OCCLUDED PATIENT SIDE. WALKED IN TO SEE PATIENT TRYING TO PRESS BUTTONS AND MAKE THE NOISE STOP. NO NEEDS AT THIS TIME. CL IN REACH. BED ALARM ON. WCTM
--- NOTE | 2020-04-19 16:40 | NUR ---
PATIENT IV THERAPY INFILTRATED IN LEFT FOREARM. DC'ED WITH TIP INTACT. NEW IV THERAPY RESTARTED WITH 22 G IN LEFT WRIST ONE ATTEMPT. GIVEN ICE CREAM. CL IN REACH. WCTM
[2020-04-19 16:45] VITALS: BP 174/98
[2020-04-19 20:22] VITALS: BP 155/87
[2020-04-19 20:56] LABS: CKMB 1.4 U/L (0.0-3.6); PRO BNP 2014 pg/mL (0-450)
[2020-04-19 21:04] LABS: CREATINE KINASE 815 UL (21-215); TROPONIN-I < 0.017 ng/mL (0.000-0.060)
--- NOTE | 2020-04-19 21:08 | NUR ---
REC'D IN ROUTE TO XRAY VIA WHEELCHAIR.DURING CHGE OF SHIFT WALKING ROUNDS ASKING IF ON HER WAY BACK TO [facility]. DO YOU KNOW ANYONE GOING THAT WAY? WILL CONTINUE TO MONITOR ON RETURN FROM XRAY
[2020-04-20 02:02] LABS: CKMB 1.3 U/L (0.0-3.6); CREATINE KINASE 768 UL (21-215)
[2020-04-20 02:07] LABS: TROPONIN-I < 0.017 ng/mL (0.000-0.060)
--- NOTE | 2020-04-20 04:50 | NUR ---
I have reviewed this patient and I concur with the Shift Assessment completed by the Licensed Practical Nurse today this shift.
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
[2020-04-20 05:26] VITALS: BP 182/97
[2020-04-20 06:12] LABS: BASOPHILS 0.1 % (0-2); EOSINOPHILS 0.6 % (0-7); HEMATOCRIT 39.8 % (36.0-48.0); HEMOGLOBIN 12.7 g/dL (12-16); IMMATURE GRANULOCYTES 0.6 % (0-5); LYMPHOCYTES 15.7 % (15-50); MCH 29.2 pg (26.0-34.0); MCHC 31.9 g/dL (31.0-37.0); MCV 91.5 fL (80.0-100.0); MEAN PLATELET VOLUME 10.7 fL (7.4-10.4); MONOCYTES 9.2 % (2-11); NEUTROPHILS 73.8 % (40-80); PLATELET COUNT 219 10x3/uL (130-400); RBC 4.35 10x6/uL (4.00-5.40); RDW 16.1 % (11.5-14.5); WBC 7.2 10x3/uL (4.8-10.8)
[2020-04-20 06:28] LABS: ALBUMIN 2.9 g/dL (3.4-5.0); ANION GAP 14.6 mmol/L (8-16); BILIRUBIN - TOTAL 0.35 mg/dL (0.2-1.3); CALCIUM 8.3 mg/dL (8.5-10.1); CARBON DIOXIDE 23.7 mmol/L (21.0-32.0); CREATININE - SERUM 1.5 mg/dL (0.6-1.3); POTASSIUM - SERUM 3.3 mmol/L (3.5-5.1); PROTEIN - SERUM 7.1 g/dL (6.4-8.2)
[2020-04-20 07:44] LABS: CKMB 1.6 U/L (0.0-3.6); CREATINE KINASE 766 UL (21-215); PHOSPHOROUS 2.3 mg/dL (2.5-4.9); TROPONIN-I 0.022 ng/mL (0.000-0.060)
[2020-04-20 09:30] VITALS: BP 192/105
[2020-04-20 10:26] LABS: BACTERIA FEW /hpf (NEGATIVE); BILIRUBIN NEGATIVE (NEGATIVE); EPITHELIAL CELLS OCC /hpf (0-5); GLUCOSE 250 mg/dL (NEGATIVE); KETONE MODERATE mg/dL (NEGATIVE); NITRITE NEGATIVE (NEGATIVE); UROBILINOGEN NORMAL (NORMAL); WHITE CELLS - URINE RARE /hpf (NEGATIVE)
[2020-04-20 10:27] LABS: RED CELLS - URINE 0-5 /hpf (0-5)
[2020-04-20 12:20] VITALS: BP 145/75
[2020-04-20 13:24] VITALS: BP 145/75
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
--- NOTE | 2020-04-20 16:08 | NUR ---
CALLED PT PHARMACY ABOUT MEDICATIONS STATED THAT SHE TOOK 40 UNITS OF LEVIMER STARTED 03/03/20. TAKES POTASSIUM CHLORIDE 10 MEQ, LASIX 80 MG BID, ISOSORBIDE 90 MG. STATED HE HASN'T FILLED ANY ATIVAN, DESYREL, OR NITROGLYCERIN IN MONTHS. TRYING TO CALL DR SIMS'S OFFICE IN [facility] AT [phone]. WITH NO ANSWER AT THE OFFICE. PHARMACIST ALSO STATED SHE WAS ON HOSPICE WITH DR MARLEY. PHARMACIST STATED SHE COULD BE GETTING MEDICATIONS MAILED TO HER WELL WHICH IS WHY I AM ATTEMPTING TO CALL DR RAMOS.
--- NOTE | 2020-04-20 17:25 | NUR ---
SPEAKING WITH CHIVO RIVERA RN WITH [facility]. [facility] PATIENT IS WHEELCHAIR AND BED BOUND. [facility] CAREGIVER IS THERE FROM [phone]. THAT MEDICATIONS SHE TAKES ARE ONLY BETWEEN THOSE HOURS. [facility] SHE DOES TAKE ASA 81 MG, LORAZEPAM 0.5 MG BID, FENTANYL 50 MCG AND SUPPOSED TO HAVE BEEN PLACED THURS AND CHANGED YESTERDAY, LASIX 40 MG BID GABAPENTIN 800 MG IN THE AM AND AT NOON. WILL NOTIFY DR GRULLON.
[2020-04-20 17:51] VITALS: BP 130/77
--- NOTE | 2020-04-20 18:00 | NUR ---
OT NOTE: PT COMPLETED UE AAROM WITIH VERBAL CUES. PT IS CONFUSED AND REQUIRED REDIRECTION. PT COMPLETED BED MOB WITH SBA-MIN A. PT COMPLETED FACE HYGIENE WITH SETUP. [phone] MYLENE SHAY COTA
--- NOTE | 2020-04-20 20:37 | NUR ---
REC'D. WALKING ROUNDS CHGE OF SHIFT. EYES CLOSED RESP. DEEP AND EVEN 02 2L NC.WILL CONTINUE TO MONITOR FOR ANY CHGES AND FOLLOW CURRENT PLAN OF CARE.
[2020-04-20 21:55] VITALS: BP 135/77
[2020-04-21 00:28] VITALS: BP 170/95
--- NOTE | 2020-04-21 04:41 | NUR ---
I have reviewed this patient and I concur with the Shift Assessment completed by the Licensed Practical Nurse today this shift.
[2020-04-21 05:03] LABS: BASOPHILS 0.2 % (0-2); EOSINOPHILS 1.3 % (0-7); HEMATOCRIT 39.1 % (36.0-48.0); HEMOGLOBIN 12.3 g/dL (12-16); IMMATURE GRANULOCYTES 0.3 % (0-5); LYMPHOCYTES 24.9 % (15-50); MCH 28.6 pg (26.0-34.0); MCHC 31.5 g/dL (31.0-37.0); MCV 90.9 fL (80.0-100.0); MEAN PLATELET VOLUME 10.3 fL (7.4-10.4); MONOCYTES 9.2 % (2-11); NEUTROPHILS 64.1 % (40-80); PLATELET COUNT 222 10x3/uL (130-400); RDW 16.4 % (11.5-14.5); WBC 6.4 10x3/uL (4.8-10.8)
[2020-04-21 05:22] LABS: ALBUMIN 2.8 g/dL (3.4-5.0); ANION GAP 13.6 mmol/L (8-16); BILIRUBIN - TOTAL 0.3 mg/dL (0.2-1.3); CARBON DIOXIDE 22.9 mmol/L (21.0-32.0); CREATININE - SERUM 1.4 mg/dL (0.6-1.3); MAGNESIUM - SERUM 1.9 mg/dL (1.8-2.4); PHOSPHOROUS 2.4 mg/dL (2.5-4.9); POTASSIUM - SERUM 3.5 mmol/L (3.5-5.1); PROTEIN - SERUM 6.6 g/dL (6.4-8.2)
[2020-04-21 05:50] VITALS: BP 155/77
[2020-04-21 09:11] VITALS: BP 162/80
--- NOTE | 2020-04-21 10:00 | NUR ---
IV THERAPY RESTARTED BY JORGE BLOUNT RN. 22 G IN LEFT HAND. TOLERATED WELL. CL IN REACH. NO FURTHER NEEDS AT THIS TIME.
[2020-04-21 12:24] VITALS: BP 154/101
--- NOTE | 2020-04-21 13:15 | NUR ---
PATIENT STATES SHE DOESN'T WANT HER DINNER. I ASKED IF SHE LIKED APPLESAUCE. SHE STATED SHE DID. GAVE HER TWO. CL IN REACH. WCTM. POSSE ALARM ON. NO FURTHER NEEDS AT THIS TIME.
--- NOTE | 2020-04-21 16:25 | NUR ---
OT NOTE: PT COMPLETED BUE AROM EXS. PT COMPLETED SIDE ROLLING WITH SBA. [phone] THANK YOU,JESU MIRAMONTES
--- NOTE | 2020-04-21 17:38 | MORECARE ---
CASE MANAGEMENT DISCHARGE SUMMARY PATIENT: BRUNO PARIS UNIT: [id number] ADM DATE: 04/17/20 AGE: 89 : [birth year] SEX: F ROOM/BED: D.2215 AUTHOR: SANJIV MELVIN PHYSICIAN: REFERRING PHYSICIAN: SHAILESH WAKEFIELD MD DATE OF SERVICE: 04/21/20 Discharge Plan Patient Name: BRUNO PARIS Facility: [facility]:[place] : 1930 Planned Disposition: Home with Hospice Anticipated Discharge Date: 04/22/20 Discharge Date: Expected LOS: 5 Initial Reviewer: [email or web address] Initial Review Date: 04/17/2020 Generated: 04/21/20 6:37 pm Comments DCP- Discharge Planning Updated by [id number]: Cathy Sherwood on 04/21/20 4:[address] DC Plans: Return home with [facility] #[phone]. Does the MD want to continue Rocephin IV in the home setting? If so, hospice will provide the Rocephin per Alison Rivero. CM will notify hospice upon order from . CM contacted patient's granddaughter, Ana Maria Schumacher @[phone], regarding home needs. Deonna states her grandmother has been with [facility] for >6 months and to contact Josefa Reyes, with [facility]. Ana Maria states that she will be moving in with her grandmother, upon DC. Henna states that patient has the following DME: hospital bed, walker, w/c, BSC, basically all the equipment that hospice can supply. Medications pertaining to the hospice diagnosis of CHF supplied by hospice. CM contacted Josefa Reyes ([phone]) with [facility], in regards to DC plans. Per Alison Rivero will continue care upon DC. Current updated information given to Josefa. Per Josefa, since the admitting diagnosis was not related to CHF, the patient was never discharged from hospice. Ana Maria is in agreement to continuing hospice care for her grandmother. CM will contact Hospice upon receiving a DC order. Coverage Notice Reviewer: [id number] - Cathy Sherwood Notice Issued Date-Time: 04/19/2020 17:57 Notice Type: Patient Choice Letter Notice Delivered To: Patient Relationship to Patient: Self Soccer Coach Name: Bruno Paris. Delivery Method: HAND - Hand Delivered Cherise Days: Prior Verbal Notification: Recipient Understood Notice: Yes Recipient Signature: Yes Med Rec Note Co-signed by Attending: Coverage Notice Comment: Patient choice for Care IV [facility]. Patient Name: BRUNO PARIS Page 44983 at 1738 All edits/amendments must be made on the electronic document DICTATION DATE: 04/21/201736 COMMISSARY AGENT: ADRIAN 04/21/201736 RPT#: [id number] DC DATE: STATUS: ADM IN [facility] [address] [place] [address] END OF REPORT
[2020-04-21 18:01] VITALS: BP 148/85
[2020-04-21 20:00] VITALS: BP 119/78
--- NOTE | 2020-04-22 02:46 | NUR ---
REC'D. AT SHIFT CHGE.SITTING ON SIDE OF BED.REPOSITIONED IN BED. HANK MAT ON.REMAINS DISORIENTED TO PLACE TIME AND SITUATION. WILL CONTINUE TO MONITOR FOR ANY CHGES IN CURRENT STATUS AND FOLLOW CURRENT PLAN OF CARE.
[2020-04-22 04:00] VITALS: BP 167/79
--- NOTE | 2020-04-22 04:45 | NUR ---
I have reviewed this patient and I concur with the Shift Assessment completed by the Licensed Practical Nurse today this shift.
[2020-04-22 07:12] LABS: BASOPHILS 0.3 % (0-2); EOSINOPHILS 2.2 % (0-7); HEMATOCRIT 38.6 % (36.0-48.0); HEMOGLOBIN 12.2 g/dL (12-16); IMMATURE GRANULOCYTES 0.3 % (0-5); LYMPHOCYTES 28.4 % (15-50); MCH 28.8 pg (26.0-34.0); MCHC 31.6 g/dL (31.0-37.0); MCV 91.3 fL (80.0-100.0); MONOCYTES 10.5 % (2-11); NEUTROPHILS 58.3 % (40-80); PLATELET COUNT 201 10x3/uL (130-400); RBC 4.23 10x6/uL (4.00-5.40); RDW 16.6 % (11.5-14.5); WBC 5.8 10x3/uL (4.8-10.8)
[2020-04-22 07:27] LABS: ALBUMIN 2.9 g/dL (3.4-5.0); ANION GAP 10.6 mmol/L (8-16); BILIRUBIN - TOTAL 0.3 mg/dL (0.2-1.3); CALCIUM 7.9 mg/dL (8.5-10.1); CARBON DIOXIDE 26.1 mmol/L (21.0-32.0); CREATININE - SERUM 1.5 mg/dL (0.6-1.3); PHOSPHOROUS 2.7 mg/dL (2.5-4.9); POTASSIUM - SERUM 3.7 mmol/L (3.5-5.1); PROTEIN - SERUM 6.1 g/dL (6.4-8.2)
--- NOTE | 2020-04-22 08:00 | NUR ---
ASSESSMENT PER FLOW SHEET. PATIENT IS WITHOUT DISTRESS.DENIES NEEDS AT PRESENT. CALL LIGHT IN REACH.
[2020-04-22 09:32] VITALS: BP 165/94
[2020-04-22] MEDS ORDERED: MACROBID100 MG PO (11:28)
[2020-04-22 13:17] VITALS: BP 165/95
--- NOTE | 2020-04-22 13:47 | NUR ---
OT NOTE: PT LESS CONFUSED AND AGITATED TODAY.. STATED, " I JUST FEEL BAD.. I FEEL VERY WEAK".. ABLE TO PERFORM BED MOB WITH MIN ASSIST; ABLE TO MIRANDA SOCKS WITH MAX ASSIST; SIMPLE GROOMING WITH SET UP; AMB APPROX 75 FT WITH WALKER, GAIT BELT, AND 02 WITH MIN ASSIST. VERY FATIGUED UPON RETURN TO ROOM. PT AGREEABLE TO SIT UP IN CHAIR.. AROM EXS WITH MODERATE REST BREAKS. PERFORMED MUCH BETTER TODAY. ARIEL MAYBERRY, OTR/L [phone]
--- NOTE | 2020-04-22 15:40 | MORECARE ---
CASE MANAGEMENT DISCHARGE SUMMARY PATIENT: BRUNO PARIS UNIT: [id number] ADM DATE: 04/17/20 AGE: 89 : [birth year] SEX: F ROOM/BED: D.2215 AUTHOR: SANJIV MELVIN PHYSICIAN: REFERRING PHYSICIAN: SHAILESH WAKEFIELD MD DATE OF SERVICE: 04/22/20 Discharge Plan Patient Name: BRUNO PARIS Facility: [facility]:[place] : 1930 Planned Disposition: Home with Hospice Anticipated Discharge Date: 04/22/20 Discharge Date: Expected LOS: 5 Initial Reviewer: [id number] Initial Review Date: 04/17/2020 Generated: 04/22/20 4:40 pm Comments DCP- Discharge Planning Updated by [email or web address]: Cathy Sherwood on 04/22/20 2:[address] CM contacted Josefa Reyes, with [facility] to make her aware that the patient is discharging home today. Josefa states she will make sure that someone is there at time of patient's arrival. Patient's granddaughter, Ana Maria Schumacher will be moving in with her upon arrival to her home. CM attempted to reach Ana Maria at the number that she provided, but the message states she is not accepting any calls at this time. Josefa will arrange someone to be there with the patient upon arrival. DCP- Discharge Planning Updated by [id number]: Cathy Sherwood on 04/21/20 4:[address] DC Plans: Return home with [facility] #[phone]. Does the MD want to continue Rocephin IV in the home setting? If so, hospice will provide the Rocephin per Alison Rivero. CM will notify hospice upon order from . CM contacted patient's granddaughter, Ana Maria Schumacher @[phone], regarding home needs. Deonna states her grandmother has been with [facility] for >6 months and to contact Josefa Reyes, with [facility]. Ana Maria states that she will be moving in with her grandmother, upon DC. Henna states that patient has the following DME: hospital bed, walker, w/c, BSC, basically all the equipment that hospice can supply. Medications pertaining to the hospice diagnosis of CHF supplied by hospice. CM contacted Josefa Reyes ([phone]) [facility] in regards to [facility] plans. Per Josefa, [facility] will continue care upon DC. Current updated information given to Josefa. Per Josefa, since the admitting diagnosis was not related to CHF, the patient was never discharged from hospice. Ana Maria is in agreement to continuing hospice care for her grandmother. CM will contact Hospice upon receiving a DC order. Coverage Notice Reviewer: [id number] Radha Sherwood Notice Issued Date-Time: 04/19/2020 17:57 Notice Type: Patient Choice Letter Notice Delivered To: Patient Relationship to Patient: Self Professor Of Chemistry Name: Bruno Paris. Delivery Method: HAND - Hand Delivered Cherise Days: Prior Verbal Notification: Recipient Understood Notice: Yes Recipient Signature: Yes Med Rec Note Co-signed by Attending: Coverage Notice Comment: Patient choice for Care IV HHS. Last DP export: 04/21/20 4:38 p Patient Name: BRUNO PARIS Page [id number] at 1540 All edits/amendments must be made on the electronic document DICTATION DATE: 04/22/20 154 RFID SPECIALIST: ADRIAN 04/22/20 154 RPT#: [id number] DC DATE: STATUS: ADM IN [facility] [address] [place] [address] END OF REPORT
--- NOTE | 2020-04-22 15:58 | NUR ---
SPOKE WITH JUAN CARLOS TOBIAS. SHE WILL PICK HER GRANDMOTHER UP FROM HOSPITAL AND TRANSPORT HER TO [place] TOMORROW
--- NOTE | 2020-04-22 16:33 | NUR ---
DISCHARGE INSTRUCTIONS,STATES UNDERSTANDING. IV DCD WITH CATH TIP INTACT. LEFT UNIT VIA WHEELCHAIR FOR TRANSPORT HOME
--- NOTE | 2020-04-22 17:39 | MORECARE ---
CASE MANAGEMENT DISCHARGE SUMMARY PATIENT: BRUNO PARIS UNIT: [id number] ADM DATE: 04/17/20 AGE: 89 : [birth year] SEX: F ROOM/BED: D.2215 AUTHOR: NGOZIDOC PHYSICIAN: REFERRING PHYSICIAN: SHAILESH WAKEFIELD MD DATE OF SERVICE: 04/22/20 Discharge Plan Patient Name: BRUNO PARIS Facility: [facility]:[place] : 1930 Planned Disposition: Home with Hospice Anticipated Discharge Date: 04/22/20 Discharge Date: 04/22/2020 Expected LOS: 5 Initial Reviewer: JOELLE Initial Review Date: 04/17/2020 Generated: 04/22/20 6:39 pm Comments DCP- Discharge Planning Updated by [id number]: Cathy Sherwood on 04/22/20 4:[address] Patient's daughter in [place] now has taken the patient to her home vs to the patient's home in [place], where all of her equipment is set up. CM attempted to reach granddaughter, Ana Maria Schumacher [phone], where the message is: that she is not accepting calls. HENRIQUE has attempted to reach her X3 times without success. CM contacted Albino Junior, with [facility] to see if he can set up home O2, for this patient at Ana Maria's home and he agrees that he can. HENRIQUE also contacted the patient's son, Pb Paris ([phone]), to see if he had an address or a different phone number for Ana Maria, here in [place], but he does not know a different number or address. CM contacted [facility] requestin the same and they provided an alternate number #[phone]. HENRIQUE called the number, got in touch with Ana Maria, who now tells me that she is on her way to [place], to take her grandmother home, where the patient's supplies are set up. HENRIQUE contacted Albino Junior with [facility], to make him aware of the change of plans, again and to give him the alternate phone number, for updated records. DCP- Discharge Planning Updated by [email or web address]: Cathy Sherwood on 04/22/20 2:[address] CM contacted Josefa Reyes, with [facility] to make her aware that the patient is discharging home today. Josefa states she will make sure that someone is there at time of patient's arrival. Patient's granddaughter, Ana Maria Schumacher will be moving in with her upon arrival to her home. CM attempted to reach Ana Maria at the number that she provided, but the message states she is not accepting any calls at this time. Josefa will arrange someone to be there with the patient upon arrival. DCP- Discharge Planning Updated by [email or web address]: Cathy Sherwood on 04/21/20 4:[address] DC Plans: Return home with Beronica Diamond #[phone]. Does the MD want to continue Rocephin IV in the home setting? If so, hospice will provide the Rocephin per Alison Rivero. CM will notify hospice upon order from MD. CM contacted patient's granddaughter, Ana Maria Schumacher @[phone], regarding home needs. Deonna states her grandmother has been with [facility] for >6 months and to contact [facility]. Ana Maria states that she will be moving in with her grandmother, upon DC. Henna states that patient has the following DME: hospital bed, walker, w/c, BSC, basically all the equipment that hospice can supply. Medications pertaining to the hospice diagnosis of CHF supplied by hospice. HENRIQUE contacted Josefa Reyes ([phone]) with [facility], in regards to DC plans. Per Alison Rivero [facility] will continue care upon DC. Current updated information given to Josefa. Per Josefa, since the admitting diagnosis was not related to CHF, the patient was never discharged from hospice. Ana Maria is in agreement to continuing hospice care for her grandmother. CM will contact Hospice upon receiving a DC order. Coverage Notice Reviewer: [id number] - Cathy Sherwood Notice Issued Date-Time: 04/19/2020 17:57 Notice Type: Patient Choice Letter Notice Delivered To: Patient Relationship to Patient: Self Caramel Cutter Machine Name: Bruno Paris. Delivery Method: HAND - Hand Delivered Cherise Days: Prior Verbal Notification: Recipient Understood Notice: Yes Recipient Signature: Yes Med Rec Note Co-signed by Attending: Coverage Notice Comment: Patient choice for Care IV HHS. Last DP export: 04/22/20 2:40 p Patient Name: BRUNO PARIS Page [id number] at 1739 All edits/amendments must be made on the electronic document DICTATION DATE: 04/22/201738 AIRCRAFT FUELER: ADRIAN 04/22/201738 RPT#: [id number] DC DATE:04/22/20 STATUS: DIS IN [address] [place] [address] END OF REPORT
--- NOTE | 2020-04-22 17:47 | MORECARE ---
CASE MANAGEMENT DISCHARGE SUMMARY PATIENT: BRUNO PARIS UNIT: [id number] ADM DATE: 04/17/20 AGE: 89 : [birth year] SEX: F ROOM/BED: D.2215 AUTHOR: NGOZIDOC PHYSICIAN: REFERRING PHYSICIAN: SHAILESH WAKEFIELD MD DATE OF SERVICE: 04/22/20 Discharge Plan Patient Name: BRUNO PARIS Facility: [facility]:[place] : 1930 Planned Disposition: Home with Hospice Anticipated Discharge Date: 04/22/20 Discharge Date: 04/22/2020 Expected LOS: 5 Initial Reviewer: JOELLE Initial Review Date: 04/17/2020 Generated: 04/22/20 6:46 pm Comments DCP- Discharge Planning Updated by [email or web address]: Cathy Sherwood on 04/22/20 4:[address] Patient's daughter in [place] now has taken the patient to her home vs to the patient's home in [place], where all of her equipment is set up. CM attempted to reach granddaughter, Ana Maria Schumacher [phone], where the message is: that she is not accepting calls. HENRIQUE has attempted to reach her X3 times without success. CM contacted Albino Junior, with [facility] to see if he can set up home O2, for this patient at Ana Maria's home and he agrees that he can. HENRIQUE also contacted the patient's son, Pb Paris ([phone]), to see if he had an address or a different phone number for Ana Maria, here in [place], but he does not know a different number or address. CM contacted [facility] requestin the same and they provided an alternate number #[phone]. HENRIQUE called the number, got in touch with Ana Maria, who now tells me that she is on her way to [place], to take her grandmother home, where the patient's supplies are set up. HENRIQUE contacted Albino Junior with [facility], to make him aware of the change of plans, again and to give him the alternate phone number, for updated records. DCP- Discharge Planning Updated by [id number]: Cathy Sherwood on 04/22/20 2:[address] CM contacted Josefa Reyes, with [facility] to make her aware that the patient is discharging home today. Josefa states she will make sure that someone is there at time of patient's arrival. Patient's granddaughter, Ana Maria Schumacher will be moving in with her upon arrival to her home. CM attempted to reach Ana Maria at the number that she provided, but the message states she is not accepting any calls at this time. Josefa will arrange someone to be there with the patient upon arrival. DCP- Discharge Planning Updated by [id number]: Cathy Sherwood on 04/21/20 4:[address] DC Plans: Return home with Beronica Diamond #[phone]. Does the MD want to continue Rocephin IV in the home setting? If so, hospice will provide the Rocephin per Alison Rivero. CM will notify hospice upon order from MD. CM contacted patient's granddaughter, Ana Maria Schumacher @[phone], regarding home needs. Deonna states her grandmother has been with [facility] for >6 months and to contact [facility]. Ana Maria states that she will be moving in with her grandmother, upon DC. Henna states that patient has the following DME: hospital bed, walker, w/c, BSC, basically all the equipment that hospice can supply. Medications pertaining to the hospice diagnosis of CHF supplied by hospice. HENRIQUE contacted Josefa Reyes ([phone]) with [facility], in regards to DC plans. Per Alison Rivero [facility] will continue care upon DC. Current updated information given to Josefa. Per Josefa, since the admitting diagnosis was not related to CHF, the patient was never discharged from hospice. Ana Maria is in agreement to continuing hospice care for her grandmother. CM will contact Hospice upon receiving a DC order. Coverage Notice Reviewer: [id number] - Cathy Sherwood Notice Issued Date-Time: 04/19/2020 17:57 Notice Type: Patient Choice Letter Notice Delivered To: Patient Relationship to Patient: Self Digital Manager Name: Bruno Paris. Delivery Method: HAND - Hand Delivered Cherise Days: Prior Verbal Notification: Recipient Understood Notice: Yes Recipient Signature: Yes Med Rec Note Co-signed by Attending: Coverage Notice Comment: Patient choice for Care IV HHS. Last DP export: 04/22/20 2:40 p Patient Name: BRUNO PARIS Page [id number] at 1747 All edits/amendments must be made on the electronic document DICTATION DATE: 04/22/201745 PIERCE AND SHAVE PRESS OPERATOR: ADRIAN 04/22/201745 RPT#: [id number] DC DATE:04/22/20 STATUS: DIS IN [facility] [address] [place] [address] END OF REPORT
--- NOTE | 2020-04-22 19:26 | MORECARE ---
CASE MANAGEMENT DISCHARGE SUMMARY PATIENT: BRUNO PARIS UNIT: [id number] ADM DATE: 04/17/20 AGE: 89 : [birth year] SEX: F ROOM/BED: D.2215 AUTHOR: NGOZI,DOC PHYSICIAN: REFERRING PHYSICIAN: SHAILESH WAKEFIELD MD DATE OF SERVICE: 04/22/20 Discharge Plan Patient Name: BRUNO PARIS Facility: [facility]:[place] : 1930 Planned Disposition: Hospice Home Anticipated Discharge Date: 04/22/20 Discharge Date: 04/22/2020 Expected LOS: 5 Initial Reviewer: [id number] Initial Review Date: 04/17/2020 Generated: 04/22/20 8:26 pm DCP- Discharge Planning Updated by [id number]: Cathy Sherwood on 04/22/20 4:[address] Patient's daughter in [place] now has taken the patient to her home vs to the patient's home in [place], where all of her equipment is set up. CM attempted to reach granddaughter, Ana Maria Schumacher [phone], where the message is: that she is not accepting calls. HENRIQUE has attempted to reach her X3 times without success. CM contacted Albino Junior, with [facility] to see if he can set up home O2, for this patient at Ana Maria's home and he agrees that he can. CM also contacted the patient's son, Pb Paris ([phone]), to see if he had an address or a different phone number for Ana Maria, here in [place], but he does not know a different number or address. CM contacted [facility] requestin the same and they provided an alternate number #[phone]. HENRIQUE called the number, got in touch with Ana Maria, who now tells me that she is on her way to [place], to take her grandmother home, where the patient's supplies are set up. HENRIQUE contacted Albino Junior with [facility], to make him aware of the change of plans, again and to give him the alternate phone number, for updated records. DCP- Discharge Planning Updated by [email or web address]: Cathy Sherwood on 04/22/20 2:[address] CM contacted Josefa Reyes, with [facility] to make her aware that the patient is discharging home today. Josefa states she will make sure that someone is there at time of patient's arrival. Patient's granddaughter, Ana Maria Schumacher will be moving in with her upon arrival to her home. CM attempted to reach Ana Maria at the number that she provided, but the message states she is not accepting any calls at this time. Josefa will arrange someone to be there with the patient upon arrival. DCP- Discharge Planning Updated by [id number]: Cathy Sherwood on 04/21/20 4:[address] DC Plans: Return home with [facility], [place] #[phone]. Does the MD want to continue Rocephin IV in the home setting? If so, hospice will provide the Rocephin per Alison Rivero. CM will notify hospice upon order from MD. CM contacted patient's granddaughter, Ana Maria Schumacher @[phone], regarding home needs. Deonna states her grandmother has been with [facility] for >6 months and to contact [facility]. Ana Maria states that she will be moving in with her grandmother, upon DC. Henna states that patient has the following DME: hospital bed, walker, w/c, BSC, basically all the equipment that hospice can supply. Medications pertaining to the hospice diagnosis of CHF supplied by hospice. CM contacted Josefa Reyes ([phone]) with [facility], in regards to DC plans. Per Josefa [facility] will continue care upon DC. Current updated information given to Josefa. Per Josefa, since the admitting diagnosis was not related to CHF, the patient was never discharged from hospice. Ana Maria is in agreement to continuing hospice care for her grandmother. CM will contact Hospice upon receiving a DC order. Coverage Notice Reviewer: [id number] - Cathy Sherwood Notice Issued Date-Time: 04/19/2020 17:57 Notice Type: Patient Choice Letter Notice Delivered To: Patient Relationship to Patient: Self Plate Glass Polisher Name: Bruno Wellington. Delivery Method: HAND - Hand Delivered Cherise Days: Prior Verbal Notification: Recipient Understood Notice: Yes Recipient Signature: Yes Med Rec Note Co-signed by Attending: Coverage Notice Comment: Patient choice for Care IV HHS. Last DP export: 04/22/20 4:47 p Patient Name: BRUNO PARIS Page [id number] at 1925 All edits/amendments must be made on the electronic document DICTATION DATE: 04/22/201925 TAN ROOM SUPERVISOR: ADRIAN 04/22/201925 RPT#: [id number] DC DATE:04/22/20 STATUS: DIS IN [facility] [address] [place] [address] END OF REPORT
== END 2020-04-22 16:44 | disposition home health service (06) | DRG 682 ==
LOC: D.ER 15:11 → D.MS 17:07
PROVIDERS: Emergency Medicine; Family Medicine; ADMIT Family Medicine; ATTEND Family Medicine
DX: N17.9 Acute kidney failure, unspecified (principal); G93.41 Metabolic encephalopathy; N39.0 Urinary tract infection, site not specified; E87.1 Hypo-osmolality and hyponatremia; I50.32 Chronic diastolic (congestive) heart failure; I13.0 Hypertensive heart and chronic kidney disease with heart failure and stage 1 through stage 4 chronic kidney disease, or unspecified chronic kidney disease; I25.10 Atherosclerotic heart disease of native coronary artery without angina pectoris; E11.65 Type 2 diabetes mellitus with hyperglycemia; G70.00 Myasthenia gravis without (acute) exacerbation; F41.9 Anxiety disorder, unspecified; R40.2363 Coma scale, best motor response, obeys commands, at hospital admission; R40.2143 Coma scale, eyes open, spontaneous, at hospital admission; R40.2243 Coma scale, best verbal response, confused conversation, at hospital admission; E86.0 Dehydration; I44.4 Left anterior fascicular block